=== PATIENT | female | born 1980 | race African-American/Black ===

== ENCOUNTER 2017-12-04 20:39 | Emergency (ER) | payer OTHER ==
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
[2017-12-04 21:03] VITALS: BP 126/87; PULSE 67; TEMP 98.5; BMI 22.1
== END 2017-12-04 22:10 | disposition left against medical advice (07) ==
LOC: JERFT 20:39
DX: R07.81 Pleurodynia (principal); F11.20 Opioid dependence, uncomplicated; W18.09XA Striking against other object with subsequent fall, initial encounter; Y93.89 Activity, other specified; Y92.89 Other specified places as the place of occurrence of the external cause
CPT/HCPCS: 84703; 99281-25

== ENCOUNTER 2018-10-18 09:24 | Inpatient (IN) | payer OTHER ==
[2018-10-18 09:43] VITALS: BMI 19.6
--- NOTE | 2018-10-18 10:39 | HP ---
CIWA Score Nausea/Vomitin Muscle Tremors: 2 Anxiety: 2 Agitation: 2 Paroxysmal Sweats: 1-Minimal Palms Moist Orientation: 0-Oriented Tacttile Disturbances: 1-Very Mild Itch/Numbness Auditory Disturbances: 1-Very Mild Visual Disturbances: 0-None Headache: 2-Mild CIWA-Ar Total Score: 13 - Admission Criteria OASAS Guidelines: Admission for Medically Managed Detox: Requires at least one of the followin. CIWA greater than 12 2. Seizures within the past 24 hours 3. Delirium tremens within the past 24 hours 4. Hallucinations within the past 24 hours 5. Acute intervention needed for co occurring medical disorder 6. Acute intervention needed for co occurring psychiatric disorder 7. Severe withdrawal that cannot be handled at a lower level of care (continued vomiting, continued diarrhea, abnormal vital signs) requiring intravenous medication and/or fluids 8. Patient presents the following: CIWA greater than 12 Admission Criteria Met: Admission criteria met Admission ROS [facility] - HPI Chief Complaint: i need help to stop drinking alcohol Allergies/Adverse Reactions: Allergies Allergy/AdvReac Type Severity Reaction Status Date / Time Pork/Porcine Containing Allergy Severe Vomiting Verified 10/18/18 10:34 Products History of Present Illness: this 37 years old female with alcohol dependence,seeking detox,withdrawal symptom,never been in detox before syncope migraine headache anxiety,depression,personality disorder weight loss no significant period of sobriety Exam Limitations: No Limitations - Ebola screening Have you traveled outside of the country in the last 21 days: No Have you had contact with anyone from an Ebola affected area: No Have you been sick,other than usual withdrawal symptoms: No Do you have a fever: No - Review of Systems Constitutional: Loss of Appetite, Malaise, Night Sweats, Changes in sleep, Weakness, Unintentional Wgt. Loss EENT: reports: Nose Congestion Respiratory: reports: No Symptoms reported Cardiac: reports: No Symptoms Reported GI: reports: Nausea, Poor Appetite, Abdominal cramping : reports: No Symptoms Reported Musculoskeletal: reports: Back Pain, Muscle Pain Integumentary: reports: Dryness Endocrine: reports: No Symptoms Reported Hematology: reports: No Symptoms Reported Psychiatric: reports: No Sypmtoms Reported, Judgement Intact, Mood/Affect Appropiate, Orientated x3, Anxious, Depressed, other (boderlined personality disorder) Patient History - Patient Medical History Hx Anemia: No Hx Asthma: No Hx Chronic Obstructive Pulmonary Disease (COPD): No Hx Cancer: No Hx Cardiac Disorders: No Hx Congestive Heart Failure: No Hx Hypertension: No Hx Hypercholesterolemia: No Hx Pacemaker: No HX Cerebrovascular Accident: No Hx Seizures: No Hx Dementia: No Hx Diabetes: No Hx Gastrointestinal Disorders: No Hx Liver Disease: No Hx Genitourinary Disorders: No Hx Sexually Transmitted Disorders: No Hx Renal Disease (ESRD): No Hx Thyroid Disease: No Hx Human Immunodeficiency Virus (HIV): No (09/28 negative) Hx Hepatitis C: No Hx Depression: Yes (anxiety,personality disorder) Hx Suicide Attempt: No Hx Bipolar Disorder: No Hx Schizophrenia: No Other Medical History: no suicidal,no homicidal,fx of second digit right - Patient Surgical History Past Surgical History: No - PPD History Previous Implant?: Yes Documented Results: Negative w/o proof Implanted On Prior [facility] Admission?: No PPD to be Administered?: Yes - Reproductive History Patient is a Female of Child Bearing Age (11 -55 yrs old): Yes Last Menstrual Period: 09/30/18 Patient : No - Smoking Cessation Smoking history: Current every day smoker Have you smoked in the past 12 months: Yes Aproximately how many cigarettes per day: 20 Hx Chewing Tobacco Use: No Initiated information on smoking cessation: Yes 'Breaking Loose' booklet given: 10/18/18 - Substance & Tx. History Hx Alcohol Use: Yes Substance Use Type: Alcohol Hx Substance Use Treatment: Yes - Substances Abused Alcohol Route: Oral Frequency: Daily Amount used: 3 24 OZ CANS FOUR LOCOS/ 1/2 PINT Age of first use: 11 Date of Last Use: 10/18/18 Family Disease History - Family Disease History Family History: Denies Admission Physical Exam [facility] - Vital Signs Vital Signs: Vital Signs - 24 hr 10/18/18 09:41 Temperature 96.8 F L Pulse Rate 94 H Respiratory 18 Rate Blood Pressure 129/73 - Physical General Appearance: Yes: Moderate Distress, Tremorous, Irritable, Sweating, Anxious HEENTM: Yes: Normal ENT Inspection, JHONNY, Pharynx Normal, Other (poor dental) Respiratory: Yes: Lungs Clear, Normal Breath Sounds, No Respiratory Distress Neck: Yes: Within Normal Limits, Supple, Trachea in good position Breast: Yes: Breast Exam Deferred Cardiology: Yes: Within Normal Limits, Regular Rhythm, Regular Rate, S1, S2 Abdominal: Yes: Within Normal Limits, Normal Bowel Sounds, Non Tender, Flat, Soft Genitourinary: Yes: Within Normal Limits Back: Yes: Muscle Spasm Musculoskeletal: Yes: full range of Motion, Back pain, Muscle Pain Extremities: Yes: Within Normal Limits, Normal Range of Motion, Tremors Neurological: Yes: central office trouble shooter II-XII NML intact, Fully Oriented, Alert, Motor Strength 5/5 Integumentary: Yes: Dry Lymphatic: Yes: Within Normal Limits - Diagnostic (1) Alcohol dependence with uncomplicated withdrawal Current Visit: Yes Status: Acute (2) Syncope Current Visit: Yes Status: Acute (3) Anxiety and depression Current Visit: Yes Status: Acute (4) Personality disorder Current Visit: Yes Status: Acute (5) Nicotine dependence Current Visit: Yes Status: Acute (6) Encounter for monitoring Suboxone maintenance therapy Current Visit: Yes Status: Acute (7) Dehydration Current Visit: Yes Status: Acute (8) Weight loss Current Visit: Yes Status: Acute Cleared for Admission [facility] - Detox or Rehab [facility] Level of Care: Medically Managed Detox Regimen/Protocol: Librium [facility] Breath Alcohol Content Breath Alcohol Content: 0.022 Urine Pregancy Test - Result Urine Test Results: Negative - NO Line Present Urine Drug Screen - Results Drug Screen Negative: No Urine Drug Screen Results: BUP-Suboxone Inpatient Rehab Admission - Rehab Decision to Admit Inpatient rehab admission?: No
[2018-10-18] MEDS ORDERED: ACETAMINOPHEN 325 MG TABLET (FP) PO PRN ×2 (10:50)
[2018-10-18] MEDS ORDERED: MAG HYDROX/AL HYDROX/SIMETH 30 ML UNIT-DOSE CUP PO PRN (10:50)
[2018-10-18] MEDS ORDERED: MENTHOL/PHENOL 1 EACH UD MM PRN (10:50)
[2018-10-18] MEDS ORDERED: MAGNESIUM CITRATE 300 ML BOTTLE PO PRN (10:50)
[2018-10-18] MEDS ORDERED: BISMUTH SUBSALICYLATE 524 MG/30 ML UD PO PRN (10:50)
[2018-10-18] MEDS ORDERED: IBUPROFEN 400 MG TABLET (FP) PO PRN (10:50)
[2018-10-18] MEDS ORDERED: METHOCARBAMOL 500 MG TABLET PO PRN (10:50)
[2018-10-18] MEDS ORDERED: hydrOXYzine PAMOATE 25 MG CAPSULE (FP) PO PRN (10:50)
[2018-10-18] MEDS ORDERED: chlordiazePOXIDE HCL 10 MG CAPSULE PO PRN (10:50)
[2018-10-18] MEDS ORDERED: MAGNESIUM HYDROX 2400MG/30ML ORAL SUSPENSION 30 ML CUP PO PRN (10:50)
[2018-10-18] MEDS ORDERED: MELATONIN 5 MG TABLETS PO PRN (10:50)
[2018-10-18] MEDS: chlordiazePOXIDE HCL 25 MG CAPSULE PO SCH ×2 (12:02→22:18)
[2018-10-18] MEDS: NICOTINE POLACRILEX 4 MG GUM BUC PRN (12:06)
[2018-10-18] MEDS: NICOTINE 21 MG/24 HOURS TOPICAL PATCH TD SCH (12:06)
[2018-10-18] MEDS: NAPROXEN 500 MG TABLET (FP) PO SCH (22:18)
[2018-10-18] MEDS: THIAMINE HCL 100 MG TABLET (FP) PO SCH (22:18)
[2018-10-19] MEDS: chlordiazePOXIDE HCL 25 MG CAPSULE PO SCH (06:32)
[2018-10-19] MEDS ORDERED: BUPRENORPHINE/NALOXONE 8 MG/2 MG FILM PACKET SL SCH (10:00)
[2018-10-19] MEDS ORDERED: PRENATAL VITAMINS W/ FOLIC ACID TABLET (FP) PO SCH (10:00)
[2018-10-19 10:23] LABS: HEMATOCRIT 32.9 % (32.4-45.2); HEMOGLOBIN 10.6 GM/dL (10.7-15.3); MCH 23.4 pg (25.7-33.7); MCHC 32.2 g/dl (32.0-36.0); MEAN CELL VOLUME 72.5 fl (80-96); MEAN PLT VOLUME 8.3 fl (7.5-11.1); PLATELET COUNT 238 K/MM3 (134-434); RBC 4.53 M/mm3 (3.60-5.2); RDW 17.1 % (11.6-15.6); WHITE BLOOD COUNT 12.8 K/mm3 (4.0-10.0)
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
[2018-10-19 10:36] LABS: ALBUMIN 4.3 g/dl (3.4-5.0); ALK PHOS 82 U/L (45-117); ANION GAP 8 MMOL/L (8-16); BILIRUBIN,TOTAL 0.6 mg/dL (0.2-1); BLOOD UREA NITROGEN 15 mg/dL (7-18); CHLORIDE 107 mmol/L (98-107); CO2 23 mmol/L (21-32); CREATININE 0.8 mg/dL (0.55-1.3); GLUCOSE,RANDOM 84 mg/dL (74-106); POTASSIUM 3.7 mmol/L (3.5-5.1); SGOT/AST 20 U/L (15-37); SGPT/ALT 21 U/L (13-61); SODIUM 137 mmol/L (136-145); TOT PROT 7.3 g/dl (6.4-8.2)
[2018-10-19] MEDS: NICOTINE 21 MG/24 HOURS TOPICAL PATCH TD SCH (10:42)
[2018-10-19] MEDS: NAPROXEN 500 MG TABLET (FP) PO SCH ×2 (10:42→21:21)
[2018-10-19] MEDS: NICOTINE POLACRILEX 4 MG GUM BUC PRN ×2 (10:43→17:33)
[2018-10-19] MEDS ORDERED: CITALOPRAM HYDROBROMIDE 10 MG TABLET (FP) PO SCH (10:45)
[2018-10-19] MEDS: busPIRone HCL 10 MG TABLET (FP) PO SCH ×2 (10:47→21:21)
--- NOTE | 2018-10-19 11:52 | PN ---
S CIWA - CIWA Score Nausea/Vomitin-No Nausea/No Vomiting Muscle Tremors: 4-Moderate,w/Arms Extend Anxiety: 4-Mod. Anxious/Guarded Agitation: 4-Moderately Restless Paroxysmal Sweats: 3 Orientation: 0-Oriented Tacttile Disturbances: 0-None Auditory Disturbances: 0-None Visual Disturbances: 0-None Headache: 0-None Present CIWA-Ar Total Score: 15 BHS Progress Note (SOAP) Subjective: anxiety sweats irritable agitation interrupted sleep body aches Objective: 10/19/18 11:51 Vital Signs Temperature 97.9 F 10/19/18 09:14 Pulse Rate 90 10/19/18 09:14 Respiratory Rate 18 10/19/18 09:14 Blood Pressure 109/73 10/19/18 09:14 O2 Sat by Pulse Oximetry (%) Laboratory Tests 10/19/18 10/19/18 06:00 06:00 WBC 12.8 H RBC 4.53 Hgb 10.6 L Hct 32.9 MCV 72.5 L MCH 23.4 L MCHC 32.2 RDW 17.1 H Plt Count 238 MPV 8.3 Sodium 137 Potassium 3.7 Chloride 107 Carbon Dioxide 23 Anion Gap 8 BUN 15 Creatinine 0.8 Creat Clearance w eGFR > 60 Random Glucose 84 Calcium 9.0 Total Bilirubin 0.6 AST 20 ALT 21 Alkaline Phosphatase 82 Total Protein 7.3 Albumin 4.3 aaox3 ambulating no acute distress Assessment: 10/19/18 12:06 withdrawals sx Plan: continue detox increase fluids
[2018-10-19] MEDS: chlordiazePOXIDE 5 MG CAPSULE PO SCH ×2 (13:27→22:26)
[2018-10-19] MEDS: hydrOXYzine PAMOATE 50 MG CAPSULE (FP) PO PRN ×3 (13:28→21:22)
--- NOTE | 2018-10-19 13:37 | EKG ---
Test Reason : Blood Pressure : / mmHG Vent. Rate : 092 BPM Atrial Rate : 092 BPM P-R Int : 150 ms QRS Dur : 084 ms QT Int : 348 ms P-R-T Axes : 070 079 -27 degrees QTc Int : 430 ms NORMAL SINUS RHYTHM T WAVE ABNORMALITY, CONSIDER INFEROLATERAL ISCHEMIA ABNORMAL ECG WHEN COMPARED WITH ECG OF 14-JUL-2018 10:07, T WAVE INVERSION NO LONGER EVIDENT IN ANTERIOR LEADS Confirmed by MD LUIS, VENANCIO ([id number]) on 10/19/2018 1:37:38 PM Referred By: Confirmed By:VENANCIO SMITH MD
[2018-10-19] MEDS: THIAMINE HCL 100 MG TABLET (FP) PO SCH (21:22)
[2018-10-19] MEDS ORDERED: MIRTAZAPINE 30 MG TABLET (FP) PO SCH (22:00)
[2018-10-20] MEDS: chlordiazePOXIDE 5 MG CAPSULE PO SCH (07:09)
[2018-10-20 07:27] VITALS: BP 85/40; PULSE 69; TEMP 97.7
--- NOTE | 2018-10-20 09:30 | PN ---
[facility] Progress Note Note: pt states she wanted to leave because she gets more help that she is looking for on the outside. technical publications writer,RN and counselor tried to engage with patient to assist with her needs but she insisted that she needs to leave. Pt was told that she did not complete her detox but continued to insist on leaving. Pt signed out AMA.
--- NOTE | 2018-10-20 09:53 | DS ---
[facility] Detox Discharge Summary Admission Date: 10/18/18 - History Present History: Alcohol Dependence - Physical Exam Results Vital Signs: Vital Signs Temperature 97.7 F 10/20/18 07:25 Pulse Rate 69 10/20/18 07:25 Respiratory Rate 16 10/20/18 07:25 Blood Pressure 85/40 L 10/20/18 07:25 O2 Sat by Pulse Oximetry (%) - Treatment Hospital Course: Discharged Condition Good - Medication Discharge Medications: Ambulatory Orders Citalopram Hydrobromide [Celexa -] 10 mg PO DAILY #30 tablet 06/16/18 Buprenorphine/Naloxone [Suboxone 8Mg/2Mg Sl Film -] 2 each SL DAILY 10/18/18 Mirtazapine [Remeron -] 30 mg PO HS 10/18/18 Naproxen [Naprosyn -] 500 mg PO BID 10/18/18 hydrOXYzine PAMOATE [Vistaril -] 50 mg PO BID 10/18/18 - Diagnosis (1) Alcohol dependence with uncomplicated withdrawal Current Visit: Yes Status: Chronic (2) Alcohol-induced mood disorder Current Visit: Yes Status: Acute (3) Alcohol-induced sleep disorder Current Visit: Yes Status: Acute (4) Anxiety and depression Current Visit: Yes Status: Acute (5) Dehydration Current Visit: Yes Status: Chronic (6) Encounter for monitoring Suboxone maintenance therapy Current Visit: Yes Status: Chronic (7) Personality disorder Current Visit: Yes Status: Acute (8) Syncope Current Visit: Yes Status: Acute (9) Weight loss Current Visit: Yes Status: Acute (10) MDD (major depressive disorder) Current Visit: Yes Status: Chronic (11) Migraine headache Current Visit: Yes Status: Chronic Qualifiers: Migraine type: without aura Intractability: not intractable (12) Nicotine dependence Current Visit: Yes Status: Chronic Qualifiers: Nicotine product type: cigarettes Substance use status: uncomplicated Qualified Code(s): F17.210 - Nicotine dependence, cigarettes, uncomplicated - AMA Did Patient Leave Against Medical Advice: Yes (going home.declined referral)
[2018-10-20] MEDS ORDERED: chlordiazePOXIDE HCL 10 MG CAPSULE PO PRN (13:00)
[2018-10-20] MEDS ORDERED: chlordiazePOXIDE HCL 10 MG CAPSULE PO SCH (13:00)
== END 2018-10-20 09:36 | disposition left against medical advice (07) | DRG 770 ==
LOC: YASAS 09:24 → Y6N 11:08
PROVIDERS: ADMIT Surgery; ATTEND Surgery
PROC: HZ2ZZZZ Detoxification Services for Substance Abuse Treatment (ICD-10-PCS; principal; 2018-10-18)
DX: F10.230 Alcohol dependence with withdrawal, uncomplicated (principal); F10.24 Alcohol dependence with alcohol-induced mood disorder; F10.282 Alcohol dependence with alcohol-induced sleep disorder; F11.20 Opioid dependence, uncomplicated; F17.210 Nicotine dependence, cigarettes, uncomplicated; F41.9 Anxiety disorder, unspecified; F32.9 Major depressive disorder, single episode, unspecified; F60.9 Personality disorder, unspecified; E86.0 Dehydration; R63.4 Abnormal weight loss; Z68.1 Body mass index [BMI] 19.9 or less, adult; Z59.0 Homelessness
CPT/HCPCS: 36415; 80053; 85027; 86593; 93005; 93010

== ENCOUNTER 2018-11-04 09:46 | Inpatient (IN) | payer OTHER ==
[2018-11-04 10:19] VITALS: BMI 19.8
--- NOTE | 2018-11-04 12:18 | HP ---
"CIWA Score Nausea/Vomitin-No Nausea/No Vomiting Muscle Tremors: None Anxiety: 4-Mod. Anxious/Guarded Agitation: 4-Moderately Restless Paroxysmal Sweats: 2 Orientation: 2-Disoriented Date<2 days Tacttile Disturbances: 0-None Auditory Disturbances: 0-None Visual Disturbances: 2-Mild Sensitivity Headache: 4-Moderately Severe CIWA-Ar Total Score: 18 - Admission Criteria OASAS Guidelines: Admission for Medically Managed Detox: Requires at least one of the followin. CIWA greater than 12 2. Seizures within the past 24 hours 3. Delirium tremens within the past 24 hours 4. Hallucinations within the past 24 hours 5. Acute intervention needed for co occurring medical disorder 6. Acute intervention needed for co occurring psychiatric disorder 7. Severe withdrawal that cannot be handled at a lower level of care (continued vomiting, continued diarrhea, abnormal vital signs) requiring intravenous medication and/or fluids 8. Admission ROS [facility] Allergies/Adverse Reactions: Allergies Allergy/AdvReac Type Severity Reaction Status Date / Time Pork/Porcine Containing Allergy Severe Vomiting Verified 11/04/18 13:34 Products History of Present Illness: pt here requesting detox from etoh use , reports 3-4 cans x 24 oz zaira and 1/2 pint vodka/day , reports use since age 12 , progressively increased since age 15 , latest use this morning 1 can of beer , current Dev 0.000 , yesterday 3 nips , day before yesterday 3-4 zaira x 24 oz , latest vodka use 3 days ago , denies seizures , + blackouts , occasional tremors , stars drinking in the mornings , denies driving , denies sobriety . denies illicits utox + briana , bzo, bup tobacco : 1 ppd PMHX : migraine martinez , anemia PShx : denies Psych: anxiety , depression , denies SI / HI Lmp 2018 upt neg . no children Shx : homeless , unemployed Search Terms: mercedes zapata, 1980 Search Date: 11/04/2018 12:09:01 PM The Drug Utilization Report below displays all of the controlled substance prescriptions, if any, that your patient has filled in the last twelve months. The information displayed on this report is compiled from pharmacy submissions to the Department, and accurately reflects the information as submitted by the pharmacies. This report was requested by: Pat Rousseau | Reference #: [id number] Others' Prescriptions Patient Name: Mercedes Zapata Date: 1980 Address: [place] [address] Sex: Female Rx Written Rx Dispensed Drug Quantity Days Supply Prescriber Name 10/25/2018 10/26/2018 buprenorphine-naloxone 8-2 mg sl film 60 30 Cecilio Angel) Patient Name: Mercedes Zapata Date: 1980 Address: [address] [place] [address] Sex: Female Rx Written Rx Dispensed Drug Quantity Days Supply Prescriber Name 10/14/2018 10/15/2018 suboxone 8 mg-2 mg sl film 28 14 Thiago Huynh MD Patient Name: Mercedes Zapata Date: 1980 Address: [place] [address] Sex: Female Rx Written Rx Dispensed Drug Quantity Days Supply Prescriber Name 09/02/2018 09/02/2018 suboxone 8 mg-2 mg sl film 60 30 Maco Nash Patient Name: Mercedes Zapata Date: 1980 Address: [address] [place] [address] Sex: Female Rx Written Rx Dispensed Drug Quantity Days Supply Prescriber Name 08/20/2018 08/24/2018 suboxone 8 mg-2 mg sl film 20 10 [facility] * - Drugs marked with an asterisk are compound drugs. If the compound drug is made up of more than one controlled substance, then each controlled substance will be a separate row in the table. Exam Limitations: Clinical Condition - Ebola screening Have you traveled outside of the country in the last 21 days: No Have you had contact with anyone from an Ebola affected area: No Have you been sick,other than usual withdrawal symptoms: No Do you have a fever: No - Review of Systems Constitutional: See HPI EENT: reports: See HPI, Other (glasses) Respiratory: reports: No Symptoms reported Cardiac: reports: No Symptoms Reported GI: reports: Diarrhea : reports: No Symptoms Reported Musculoskeletal: reports: No Symptoms Reported Integumentary: reports: No Symptoms Reported Neuro: reports: Headache Endocrine: reports: No Symptoms Reported Psychiatric: reports: Orientated x3, Agitated, Anxious Patient History - Patient Medical History Hx Anemia: No Hx Asthma: No Hx Chronic Obstructive Pulmonary Disease (COPD): No Hx Cancer: No Hx Cardiac Disorders: No Hx Congestive Heart Failure: No Hx Hypertension: No Hx Hypercholesterolemia: No Hx Pacemaker: No HX Cerebrovascular Accident: No Hx Seizures: No Hx Dementia: No Hx Diabetes: No Hx Gastrointestinal Disorders: No Hx Liver Disease: No Hx Genitourinary Disorders: No Hx Sexually Transmitted Disorders: No Hx Renal Disease (ESRD): No Hx Thyroid Disease: No Hx Human Immunodeficiency Virus (HIV): No (09/28 negative) Hx Hepatitis C: No Hx Depression: Yes (anxiety,personality disorder) Hx Suicide Attempt: No Hx Bipolar Disorder: No Hx Schizophrenia: No - Patient Surgical History Past Surgical History: No - PPD History Date: 10/20/18 - Reproductive History Last Menstrual Period: 09/30/18 - Smoking Cessation Smoking history: Current every day smoker Have you smoked in the past 12 months: Yes Aproximately how many cigarettes per day: 20 Hx Chewing Tobacco Use: No Initiated information on smoking cessation: No - Substances Abused Alcohol Route: Oral Frequency: Daily Amount used: 3 24 OZ CANES FOUR LOCO/ 1 PINT OF VODKA Age of first use: 12 Date of Last Use: 11/04/18 Cocaine Route: Inhalation Frequency: 3-6 times per week Amount used: $20-40 Age of first use: 18 Date of Last Use: 11/01/18 Admission Physical Exam S - Vital Signs Vital Signs: Vital Signs - 24 hr 11/04/18 10:18 Temperature 98.6 F Pulse Rate 79 Respiratory 18 Rate Blood Pressure 125/81 - Physical General Appearance: Yes: Moderate Distress, Thin, Anxious HEENTM: Yes: EOMI, Hearing grossly Normal, Normocephalic, Normal Voice, Other ( poor dentition , many missing teeth) Respiratory: Yes: Chest Non-Tender, Lungs Clear, Normal Breath Sounds Neck: Yes: No masses,lesions,Nodules, Trachea in good position Cardiology: Yes: Regular Rhythm, Regular Rate, S1, S2 Abdominal: Yes: Non Tender, Soft Back: Yes: Normal Inspection Musculoskeletal: Yes: Gait Steady Extremities: Yes: Non-Tender, Tremors Neurological: Yes: Motor Strength 5/5 Integumentary: Yes: Normal Color, Warm - Diagnostic (1) Alcohol dependence with uncomplicated withdrawal Current Visit: Yes Status: Acute (2) Nicotine dependence Current Visit: Yes Status: Chronic Qualifiers: Nicotine product type: cigarettes Substance use status: uncomplicated Qualified Code(s): F17.210 - Nicotine dependence, cigarettes, uncomplicated [facility] Breath Alcohol Content Breath Alcohol Content: 0 Urine Pregancy Test - Result Urine Test Results: Negative - NO line present Urine Drug Screen - Results Drug Screen Negative: No Urine Drug Screen Results: BRIANA-Cocaine, BZO-Benzodiazepines, BUP-Suboxone Inpatient Rehab Admission - Rehab Decision to Admit Inpatient rehab admission?: No"
[2018-11-04] MEDS ORDERED: MAGNESIUM HYDROX 2400MG/30ML ORAL SUSPENSION 30 ML CUP PO PRN (12:32)
[2018-11-04] MEDS ORDERED: MENTHOL/PHENOL 1 EACH UD MM PRN (12:32)
[2018-11-04] MEDS ORDERED: chlordiazePOXIDE HCL 25 MG CAPSULE PO PRN (12:32)
[2018-11-04] MEDS ORDERED: ACETAMINOPHEN 325 MG TABLET (FP) PO PRN (12:32)
[2018-11-04] MEDS ORDERED: MAGNESIUM CITRATE 300 ML BOTTLE PO PRN (12:32)
[2018-11-04] MEDS ORDERED: BISMUTH SUBSALICYLATE 262 MG/15 ML BTL PO PRN (12:32)
[2018-11-04] MEDS ORDERED: MAG HYDROX/AL HYDROX/SIMETH 30 ML UNIT-DOSE CUP PO PRN (12:32)
[2018-11-04] MEDS: chlordiazePOXIDE HCL 25 MG CAPSULE PO SCH ×2 (17:47→22:18)
[2018-11-04] MEDS: hydrOXYzine PAMOATE 50 MG CAPSULE (FP) PO SCH (22:18)
[2018-11-04] MEDS: MIRTAZAPINE 30 MG TABLET (FP) PO SCH (22:18)
[2018-11-04] MEDS: THIAMINE HCL 100 MG TABLET (FP) PO SCH (22:18)
[2018-11-04] MEDS: ACETAMINOPHEN 325 MG TABLET (FP) PO PRN (22:20)
[2018-11-05] MEDS: chlordiazePOXIDE HCL 25 MG CAPSULE PO SCH ×4 (05:35→22:19)
[2018-11-05] MEDS: PRENATAL VITAMINS W/ FOLIC ACID TABLET (FP) PO SCH (10:06)
[2018-11-05] MEDS: BUPRENORPHINE/NALOXONE 8 MG/2 MG FILM PACKET SL SCH (10:07)
[2018-11-05] MEDS: hydrOXYzine PAMOATE 50 MG CAPSULE (FP) PO SCH (10:08)
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
[2018-11-05 10:29] LABS: ALBUMIN 4.1 g/dl (3.4-5.0); ALK PHOS 82 U/L (45-117); ANION GAP 8 MMOL/L (8-16); BILIRUBIN,TOTAL 0.4 mg/dL (0.2-1); BLOOD UREA NITROGEN 12 mg/dL (7-18); CALCIUM 8.9 mg/dL (8.5-10.1); CHLORIDE 104 mmol/L (98-107); CO2 28 mmol/L (21-32); CREATININE 0.8 mg/dL (0.55-1.3); GLUCOSE,RANDOM 135 mg/dL (74-106); POTASSIUM 4.5 mmol/L (3.5-5.1); SGOT/AST 20 U/L (15-37); SGPT/ALT 17 U/L (13-61); SODIUM 140 mmol/L (136-145); TOT PROT 7.2 g/dl (6.4-8.2)
[2018-11-05 10:32] LABS: HEMATOCRIT 35.2 % (32.4-45.2); HEMOGLOBIN 10.6 GM/dL (10.7-15.3); MCH 22.5 pg (25.7-33.7); MCHC 30.2 g/dl (32.0-36.0); MEAN CELL VOLUME 74.6 fl (80-96); MEAN PLT VOLUME 8.3 fl (7.5-11.1); PLATELET COUNT 296 K/MM3 (134-434); RBC 4.72 M/mm3 (3.60-5.2); RDW 16.7 % (11.6-15.6); WHITE BLOOD COUNT 10.2 K/mm3 (4.0-10.0)
[2018-11-05] MEDS: CITALOPRAM HYDROBROMIDE 10 MG TABLET (FP) PO SCH (11:16)
[2018-11-05] MEDS: NICOTINE 21 MG/24 HOURS TOPICAL PATCH TD SCH (11:17)
[2018-11-05] MEDS: hydrOXYzine PAMOATE 50 MG CAPSULE (FP) PO PRN (17:39)
[2018-11-05] MEDS: IBUPROFEN 400 MG TABLET (FP) PO PRN (17:39)
[2018-11-05] MEDS: NICOTINE POLACRILEX 2 MG GUM BUC PRN (17:44)
--- NOTE | 2018-11-05 17:52 | PN ---
[facility] CIWA - CIWA Score Nausea/Vomitin-No Nausea/No Vomiting Muscle Tremors: None Anxiety: 4-Mod. Anxious/Guarded Agitation: 1-Slight > Activity Paroxysmal Sweats: 3 Orientation: 0-Oriented Tacttile Disturbances: 2-Mild Itch/Numbness/Burn Auditory Disturbances: 0-None Visual Disturbances: 2-Mild Sensitivity Headache: 3-Moderate CIWA-Ar Total Score: 15 S Progress Note (SOAP) Subjective: Sweating, H/A, Anxious. Objective: PATIENT A & O X 3, OBSERVED AMBULATING ON UNIT. IN NO ACUTE DISTRESS. PATIENT AFEBRILE. 11/05/18 17:49 Vital Signs Temperature 97.3 F L 11/05/18 09:38 Pulse Rate 62 11/05/18 09:38 Respiratory Rate 18 11/05/18 09:38 Blood Pressure 108/67 11/05/18 09:38 O2 Sat by Pulse Oximetry (%) Laboratory Tests 11/05/18 11/05/18 11/05/18 06:00 06:00 06:00 WBC 10.2 H RBC 4.72 Hgb 10.6 L Hct 35.2 MCV 74.6 L MCH 22.5 L MCHC 30.2 L RDW 16.7 H Plt Count 296 D MPV 8.3 Sodium 140 Potassium 4.5 Chloride 104 Carbon Dioxide 28 Anion Gap 8 BUN 12 Creatinine 0.8 Creat Clearance w eGFR 80.27 Random Glucose 135 H Calcium 8.9 Total Bilirubin 0.4 AST 20 ALT 17 Alkaline Phosphatase 82 Total Protein 7.2 Albumin 4.1 RPR Titer Nonreactive LABS NOTED. 11/05/18 17:51 Assessment: 11/05/18 17:50 WITHDRAWAL SYMPTOMS. ANEMIA. HYPERGLYCEMIA. Plan: CONTINUE DETOX. INCREASE DAILY PO FLUID INTAKE. BGM ACBK FOR ELEVATED ADMISSION RANDOM GLUCOSE LEVEL. PATIENT IS CURRENTLY RECEIVING DAILY MVI CONTAINING B VITAMINS AND IRON WHILE ADMITTED FOR DETOX.
[2018-11-05] MEDS: busPIRone HCL 10 MG TABLET (FP) PO SCH (22:19)
[2018-11-05] MEDS: MIRTAZAPINE 30 MG TABLET (FP) PO SCH (22:19)
[2018-11-05] MEDS: THIAMINE HCL 100 MG TABLET (FP) PO SCH (22:19)
[2018-11-06] MEDS: chlordiazePOXIDE HCL 25 MG CAPSULE PO SCH ×2 (06:28→10:30)
[2018-11-06] MEDS: ACETAMINOPHEN 325 MG TABLET (FP) PO PRN ×3 (09:06→22:35)
[2018-11-06] MEDS: PRENATAL VITAMINS W/ FOLIC ACID TABLET (FP) PO SCH (10:29)
[2018-11-06] MEDS: CITALOPRAM HYDROBROMIDE 10 MG TABLET (FP) PO SCH (10:29)
[2018-11-06] MEDS: IBUPROFEN 400 MG TABLET (FP) PO PRN ×2 (10:29→17:51)
[2018-11-06] MEDS: busPIRone HCL 10 MG TABLET (FP) PO SCH ×2 (10:30→22:32)
[2018-11-06] MEDS: NICOTINE 21 MG/24 HOURS TOPICAL PATCH TD SCH (10:30)
[2018-11-06] MEDS: BUPRENORPHINE/NALOXONE 8 MG/2 MG FILM PACKET SL SCH (10:30)
[2018-11-06] MEDS: NICOTINE POLACRILEX 2 MG GUM BUC PRN ×2 (10:31→17:52)
--- NOTE | 2018-11-06 10:52 | PN ---
[facility] CIWA - CIWA Score Nausea/Vomitin-Mild Nausea/No Vomiting Muscle Tremors: 2 Anxiety: 3 Agitation: 3 Paroxysmal Sweats: 2 Orientation: 0-Oriented Tacttile Disturbances: 0-None Auditory Disturbances: 0-None Visual Disturbances: 0-None Headache: 0-None Present CIWA-Ar Total Score: 11 [facility] COWS - Scale Anxiety or Irritability: 2=Irritable/Anxious [facility] Progress Note (SOAP) Subjective: toothache requesting discharge prescriptions for naproxen and suboxone to take to [facility] upon d/c Objective: 11/06/18 10:45 A & O x 3 Cavity noted to lower molars, gum slightly swollen Vital Signs Temperature 97.8 F 11/06/18 10:35 Pulse Rate 66 11/06/18 10:35 Respiratory Rate 18 11/06/18 10:35 Blood Pressure 112/76 11/06/18 10:35 O2 Sat by Pulse Oximetry (%) Laboratory Last Values WBC 10.2 K/mm3 (4.0-10.0) H 11/05/18 06:00 RBC 4.72 M/mm3 (3.60-5.2) 11/05/18 06:00 Hgb 10.6 GM/dL (10.7-15.3) L 11/05/18 06:00 Hct 35.2 % (32.4-45.2) 11/05/18 06:00 MCV 74.6 fl (80-96) L 11/05/18 06:00 MCH 22.5 pg (25.7-33.7) L 11/05/18 06:00 MCHC 30.2 g/dl (32.0-36.0) L 11/05/18 06:00 RDW 16.7 % (11.6-15.6) H 11/05/18 06:00 Plt Count 296 K/MM3 (134-434) D 11/05/18 06:00 MPV 8.3 fl (7.5-11.1) 11/05/18 06:00 Sodium 140 mmol/L (136-145) 11/05/18 06:00 Potassium 4.5 mmol/L (3.5-5.1) 11/05/18 06:00 Chloride 104 mmol/L (98-107) 11/05/18 06:00 Carbon Dioxide 28 mmol/L (21-32) 11/05/18 06:00 Anion Gap 8 MMOL/L (8-16) 11/05/18 06:00 BUN 12 mg/dL (7-18) 11/05/18 06:00 Creatinine 0.8 mg/dL (0.55-1.3) 11/05/18 06:00 Creat Clearance w eGFR 80.27 (>60) 11/05/18 06:00 Random Glucose 135 mg/dL (74-106) H 11/05/18 06:00 Calcium 8.9 mg/dL (8.5-10.1) 11/05/18 06:00 Total Bilirubin 0.4 mg/dL (0.2-1) 11/05/18 06:00 AST 20 U/L (15-37) 11/05/18 06:00 ALT 17 U/L (13-61) 11/05/18 06:00 Alkaline Phosphatase 82 U/L (45-117) 11/05/18 06:00 Total Protein 7.2 g/dl (6.4-8.2) 11/05/18 06:00 Albumin 4.1 g/dl (3.4-5.0) 11/05/18 06:00 RPR Titer Nonreactive (NONREACTIVE) 11/05/18 06:00 WBC elevated, probably due to pt's tooth cavity low HGb, on multivitamin supplements Assessment: 11/06/18 15:23 Withdrawal sx Tooth decay Plan: Continue detox Amoxicillin QID for tooth de4cay Encourage increased hydration NAproxen sent to pharmacy, explained to pt that 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
[2018-11-06] MEDS: hydrOXYzine PAMOATE 50 MG CAPSULE (FP) PO PRN ×2 (12:59→17:49)
[2018-11-06] MEDS ORDERED: chlordiazePOXIDE HCL 10 MG CAPSULE PO PRN (17:00)
[2018-11-06] MEDS: chlordiazePOXIDE HCL 10 MG CAPSULE PO SCH ×2 (17:48→22:32)
[2018-11-06] MEDS: THIAMINE HCL 100 MG TABLET (FP) PO SCH (22:31)
[2018-11-06] MEDS: MIRTAZAPINE 30 MG TABLET (FP) PO SCH (22:32)
[2018-11-06] MEDS: MELATONIN 5 MG TABLETS PO PRN (22:33)
[2018-11-07] MEDS: chlordiazePOXIDE HCL 10 MG CAPSULE PO SCH ×3 (06:03→17:12)
--- NOTE | 2018-11-07 09:31 | DS ---
[facility] Detox Discharge Summary Admission Date: 11/04/18 Discharge Date: 11/07/18 - History Present History: Alcohol Dependence Additional Comments: 38 years old female admitted on 11/04/18 for alcohol withdrawal stabilization in suboxon program 8-2 mg sl bid last 30 days filled 10/26/18 patient reporting that her aftercare at [facility] will be filler picker tomorrow as per counselor encourage the pateint return to suboxon maintenance program for medical and mental issues - Physical Exam Results Vital Signs: Vital Signs Temperature 98.2 F 11/07/18 06:32 Pulse Rate 60 11/07/18 06:32 Respiratory Rate 16 11/07/18 06:32 Blood Pressure 91/59 L 11/07/18 06:32 O2 Sat by Pulse Oximetry (%) Pertinent Admission Physical Exam Findings: alcohol withdrawal sx Laboratory Last Values WBC 10.2 K/mm3 (4.0-10.0) H 11/05/18 06:00 RBC 4.72 M/mm3 (3.60-5.2) 11/05/18 06:00 Hgb 10.6 GM/dL (10.7-15.3) L 11/05/18 06:00 Hct 35.2 % (32.4-45.2) 11/05/18 06:00 MCV 74.6 fl (80-96) L 11/05/18 06:00 MCH 22.5 pg (25.7-33.7) L 11/05/18 06:00 MCHC 30.2 g/dl (32.0-36.0) L 11/05/18 06:00 RDW 16.7 % (11.6-15.6) H 11/05/18 06:00 Plt Count 296 K/MM3 (134-434) D 11/05/18 06:00 MPV 8.3 fl (7.5-11.1) 11/05/18 06:00 Sodium 140 mmol/L (136-145) 11/05/18 06:00 Potassium 4.5 mmol/L (3.5-5.1) 11/05/18 06:00 Chloride 104 mmol/L (98-107) 11/05/18 06:00 Carbon Dioxide 28 mmol/L (21-32) 11/05/18 06:00 Anion Gap 8 MMOL/L (8-16) 11/05/18 06:00 BUN 12 mg/dL (7-18) 11/05/18 06:00 Creatinine 0.8 mg/dL (0.55-1.3) 11/05/18 06:00 Creat Clearance w eGFR 80.27 (>60) 11/05/18 06:00 Random Glucose 135 mg/dL (74-106) H 11/05/18 06:00 Calcium 8.9 mg/dL (8.5-10.1) 11/05/18 06:00 Total Bilirubin 0.4 mg/dL (0.2-1) 11/05/18 06:00 AST 20 U/L (15-37) 11/05/18 06:00 ALT 17 U/L (13-61) 11/05/18 06:00 Alkaline Phosphatase 82 U/L (45-117) 11/05/18 06:00 Total Protein 7.2 g/dl (6.4-8.2) 11/05/18 06:00 Albumin 4.1 g/dl (3.4-5.0) 11/05/18 06:00 RPR Titer Nonreactive (NONREACTIVE) 11/05/18 06:00 lab noted - Treatment Hospital Course: Detox Protocol Followed, Detoxed Safely, Responded well, Discharged Condition Good, Rehab Referral Accepted Patient has Accepted a Rehab Referral to: [facility] - Medication Discharge Medications: Ambulatory Orders Citalopram Hydrobromide [Celexa -] 10 mg PO DAILY #30 tablet 06/16/18 Buprenorphine/Naloxone [Suboxone 8Mg/2Mg Sl Film -] 2 each SL DAILY 10/18/18 Mirtazapine [Remeron -] 30 mg PO HS 10/18/18 Naproxen [Naprosyn -] 500 mg PO BID 10/18/18 hydrOXYzine PAMOATE [Vistaril -] 50 mg PO BID 10/18/18 Buspirone HCl [Buspar -] 10 mg PO BID 11/05/18 - Diagnosis (1) Alcohol dependence with uncomplicated withdrawal Current Visit: Yes Status: Acute (2) Encounter for monitoring Suboxone maintenance therapy Current Visit: Yes Status: Chronic (3) Nicotine dependence Current Visit: Yes Status: Acute Qualifiers: Nicotine product type: cigarettes Substance use status: in withdrawal Qualified Code(s): F17.213 - Nicotine dependence, cigarettes, with withdrawal (4) Weight loss Current Visit: Yes Status: Acute - AMA Did Patient Leave Against Medical Advice: No
[2018-11-07] MEDS: busPIRone HCL 10 MG TABLET (FP) PO SCH ×2 (10:26→22:07)
[2018-11-07] MEDS: NICOTINE 21 MG/24 HOURS TOPICAL PATCH TD SCH (10:26)
[2018-11-07] MEDS: BUPRENORPHINE/NALOXONE 8 MG/2 MG FILM PACKET SL SCH (10:26)
[2018-11-07] MEDS: CITALOPRAM HYDROBROMIDE 10 MG TABLET (FP) PO SCH (10:26)
[2018-11-07] MEDS: PRENATAL VITAMINS W/ FOLIC ACID TABLET (FP) PO SCH (10:26)
[2018-11-07] MEDS: ACETAMINOPHEN 325 MG TABLET (FP) PO PRN ×2 (10:27→17:14)
[2018-11-07] MEDS: hydrOXYzine PAMOATE 50 MG CAPSULE (FP) PO PRN ×2 (10:28→17:14)
[2018-11-07] MEDS: NICOTINE POLACRILEX 2 MG GUM BUC PRN (10:28)
--- NOTE | 2018-11-07 14:18 | PN ---
[facility] CIWA - CIWA Score Nausea/Vomitin-No Nausea/No Vomiting Muscle Tremors: 1-None Visible, but [place] Anxiety: 1-Mildly Anxious Agitation: 1-Slight > Activity Paroxysmal Sweats: No Perspiration Orientation: 0-Oriented Tacttile Disturbances: 1-Very Mild Itch/Numbness Auditory Disturbances: 1-Very Mild Visual Disturbances: 0-None Headache: 1-Very Mild CIWA-Ar Total Score: 6 [facility] Progress Note (SOAP) Subjective: feeling better today patient does not want to leave the detox unit due to counselor arranged transportation for her on 11/08/18 to [facility] patient does not want to leave the detox unit today Objective: 11/07/18 14:21 Vital Signs Temperature 98.8 F 11/07/18 09:37 Pulse Rate 66 11/07/18 09:37 Respiratory Rate 18 11/07/18 09:37 Blood Pressure 109/71 11/07/18 09:37 O2 Sat by Pulse Oximetry (%) Laboratory Last Values WBC 10.2 K/mm3 (4.0-10.0) H 11/05/18 06:00 RBC 4.72 M/mm3 (3.60-5.2) 11/05/18 06:00 Hgb 10.6 GM/dL (10.7-15.3) L 11/05/18 06:00 Hct 35.2 % (32.4-45.2) 11/05/18 06:00 MCV 74.6 fl (80-96) L 11/05/18 06:00 MCH 22.5 pg (25.7-33.7) L 11/05/18 06:00 MCHC 30.2 g/dl (32.0-36.0) L 11/05/18 06:00 RDW 16.7 % (11.6-15.6) H 11/05/18 06:00 Plt Count 296 K/MM3 (134-434) D 11/05/18 06:00 MPV 8.3 fl (7.5-11.1) 11/05/18 06:00 Sodium 140 mmol/L (136-145) 11/05/18 06:00 Potassium 4.5 mmol/L (3.5-5.1) 11/05/18 06:00 Chloride 104 mmol/L (98-107) 11/05/18 06:00 Carbon Dioxide 28 mmol/L (21-32) 11/05/18 06:00 Anion Gap 8 MMOL/L (8-16) 11/05/18 06:00 BUN 12 mg/dL (7-18) 11/05/18 06:00 Creatinine 0.8 mg/dL (0.55-1.3) 11/05/18 06:00 Creat Clearance w eGFR 80.27 (>60) 11/05/18 06:00 Random Glucose 135 mg/dL (74-106) H 11/05/18 06:00 Calcium 8.9 mg/dL (8.5-10.1) 11/05/18 06:00 Total Bilirubin 0.4 mg/dL (0.2-1) 11/05/18 06:00 AST 20 U/L (15-37) 11/05/18 06:00 ALT 17 U/L (13-61) 11/05/18 06:00 Alkaline Phosphatase 82 U/L (45-117) 11/05/18 06:00 Total Protein 7.2 g/dl (6.4-8.2) 11/05/18 06:00 Albumin 4.1 g/dl (3.4-5.0) 11/05/18 06:00 RPR Titer Nonreactive (NONREACTIVE) 11/05/18 06:00 lab noted Assessment: 11/07/18 14:21 mild withdrawal sx Plan: continue detox
[2018-11-07] MEDS: MIRTAZAPINE 30 MG TABLET (FP) PO SCH (22:07)
[2018-11-07] MEDS: MELATONIN 5 MG TABLETS PO PRN (22:07)
[2018-11-07] MEDS: THIAMINE HCL 100 MG TABLET (FP) PO SCH (22:07)
[2018-11-07] MEDS: IBUPROFEN 400 MG TABLET (FP) PO PRN (22:10)
[2018-11-08] MEDS: chlordiazePOXIDE HCL 10 MG CAPSULE PO SCH (06:08)
[2018-11-08 09:15] VITALS: BP 105/69; PULSE 70; TEMP 98.2
[2018-11-08] MEDS: busPIRone HCL 10 MG TABLET (FP) PO SCH (10:13)
[2018-11-08] MEDS: NICOTINE 21 MG/24 HOURS TOPICAL PATCH TD SCH (10:13)
[2018-11-08] MEDS: PRENATAL VITAMINS W/ FOLIC ACID TABLET (FP) PO SCH (10:13)
[2018-11-08] MEDS: CITALOPRAM HYDROBROMIDE 10 MG TABLET (FP) PO SCH (10:13)
[2018-11-08] MEDS: NICOTINE POLACRILEX 2 MG GUM BUC PRN (10:14)
[2018-11-08] MEDS: BUPRENORPHINE/NALOXONE 8 MG/2 MG FILM PACKET SL SCH (10:14)
[2018-11-08] MEDS: hydrOXYzine PAMOATE 50 MG CAPSULE (FP) PO PRN (10:15)
[2018-11-08] MEDS: ACETAMINOPHEN 325 MG TABLET (FP) PO PRN (10:25)
--- NOTE | 2018-11-08 13:31 | DS ---
[facility] Detox Discharge Summary Admission Date: 11/04/18 Discharge Date: 11/08/18 - History Present History: Alcohol Dependence, Opioid Dependence Additional Comments: PATIENT GOING TO [facility] [place] FOR AFTERCARE. PATIENT WAS DISCHARGED FROM DETOX UNIT TO BE TAKEN OVER TO REHAB UNIT IN STABLE MEDICAL CONDITION. Pertinent Past History: Depression, Anxiety, History of Personality Disorder, Nicotine Dependence, Suboxone Maintenance Therapy. - Physical Exam Results Vital Signs: Vital Signs Temperature 98.2 F 11/08/18 09:14 Pulse Rate 70 11/08/18 09:14 Respiratory Rate 18 11/08/18 09:14 Blood Pressure 105/69 11/08/18 09:14 O2 Sat by Pulse Oximetry (%) Pertinent Admission Physical Exam Findings: WITHDRAWAL SYMPTOMS. Laboratory Tests 11/05/18 11/05/18 11/05/18 06:00 06:00 06:00 WBC 10.2 H RBC 4.72 Hgb 10.6 L Hct 35.2 MCV 74.6 L MCH 22.5 L MCHC 30.2 L RDW 16.7 H Plt Count 296 D MPV 8.3 Sodium 140 Potassium 4.5 Chloride 104 Carbon Dioxide 28 Anion Gap 8 BUN 12 Creatinine 0.8 Creat Clearance w eGFR 80.27 Random Glucose 135 H Calcium 8.9 Total Bilirubin 0.4 AST 20 ALT 17 Alkaline Phosphatase 82 Total Protein 7.2 Albumin 4.1 RPR Titer Nonreactive LABS NOTED. - Treatment Hospital Course: Detox Protocol Followed, Detoxed Safely, Responded well, Discharged Condition Good, Rehab Referral Accepted Patient has Accepted a Rehab Referral to: [facility] ([place] [place] - Medication Discharge Medications: Ambulatory Orders Citalopram Hydrobromide [Celexa -] 10 mg PO DAILY #30 tablet 06/16/18 Buprenorphine/Naloxone [Suboxone 8Mg/2Mg Sl Film -] 2 each SL DAILY 10/18/18 Mirtazapine [Remeron -] 30 mg PO HS 10/18/18 Naproxen [Naprosyn -] 500 mg PO BID 10/18/18 hydrOXYzine PAMOATE [Vistaril -] 50 mg PO BID 10/18/18 Buspirone HCl [Buspar -] 10 mg PO BID 11/05/18 - Diagnosis (1) Alcohol dependence with uncomplicated withdrawal Status: Acute (2) Alcohol-induced mood disorder Status: Acute (3) Nicotine dependence Status: Acute Qualifiers: Nicotine product type: cigarettes Substance use status: in withdrawal Qualified Code(s): F17.213 - Nicotine dependence, cigarettes, with withdrawal (4) Encounter for monitoring Suboxone maintenance therapy Status: Chronic (5) MDD (major depressive disorder) Status: Chronic Qualifiers: Major depression recurrence: unspecified whether recurrent Active/ Remission status: remission status unspecified Qualified Code(s): F32.9 - Major depressive disorder, single episode, unspecified - AMA Did Patient Leave Against Medical Advice: No
== END 2018-11-08 11:55 | disposition other institution (70) | DRG 773 ==
LOC: YASAS 09:46 → Y3N 14:23
PROVIDERS: ADMIT Surgery; ATTEND Surgery
PROC: HZ2ZZZZ Detoxification Services for Substance Abuse Treatment (ICD-10-PCS; principal; 2018-11-04)
DX: F10.230 Alcohol dependence with withdrawal, uncomplicated (principal); F10.24 Alcohol dependence with alcohol-induced mood disorder; F11.20 Opioid dependence, uncomplicated; F17.213 Nicotine dependence, cigarettes, with withdrawal; F32.9 Major depressive disorder, single episode, unspecified; K02.9 Dental caries, unspecified; D64.9 Anemia, unspecified; R73.9 Hyperglycemia, unspecified
CPT/HCPCS: 36415; 80053; 85027; 86593

== ENCOUNTER 2018-11-08 11:37 | Inpatient (IN) | payer OTHER ==
[2018-11-08 12:24] VITALS: BP 107/73; PULSE 62; TEMP 98.2
--- NOTE | 2018-11-08 13:27 | HP ---
[facility] Rehab Assess/Revision - Admission History Date of Admission to Rehab: 11/08/2018 - Vital signs Vital Signs: Vital Signs Period Temp Pulse Resp BP Sys/Galvan Pulse Ox Last 24 Hr 98.2 F 62 16 107/73 - Findings Detox History & Physical reviewed: Yes Concur with findings: Yes Comments/Additional Findings: PATIENT'S MEDICAL / MEDICATION HISTORY REVIEWED PRIOR TO DISCHARGE FROM DETOX UNIT. PER PSYCHAITRIST DR. Doreen WALKER, PATIENT IS PSYCHIATRICALLY STABLE AT THIS TIME. THEREFORE, PSYCHIATRIC MEDICATIONS ORDERED WHILE PATIENT WAS ADMITTED FOR DETOX TO BE CONTINUED ON ADMISSION TO [facility]. PATIENT WAS DISCHARGED FROM DETOX UNIT TO BE TAKEN OVER TO REHAB UNIT IN STABLE MEDICAL CONDITION. Inpatient Rehab Admission - Rehab Decision to Admit Inpatient rehab admission?: Yes - Initial Determination Are CD services needed?: Yes Free of communicable disease: Yes Not in need of hospitalization: Yes - Rehab Admission Criteria Previous failed treatment: No Poor recovery environment: Yes Comorbidities: Yes Lacks judgement: Yes Patient is meeting Inpatient Rehab admission criteria:: Yes
[2018-11-08] MEDS ORDERED: IBUPROFEN 400 MG TABLET (FP) PO PRN (13:40)
[2018-11-08] MEDS ORDERED: guaiFENesin 200 MG/10 ML 10 ML UNIT-DOSE CUPS PO PRN (13:40)
[2018-11-08] MEDS ORDERED: hydrOXYzine PAMOATE 50 MG CAPSULE (FP) PO PRN (13:40)
[2018-11-08] MEDS ORDERED: LOPERAMIDE HCL 2 MG CAPSULE PO PRN (13:40)
[2018-11-08] MEDS ORDERED: MAG HYDROX/AL HYDROX/SIMETH 30 ML UNIT-DOSE CUP PO PRN (13:40)
[2018-11-08] MEDS ORDERED: P-EPHED 60MG/TRIPROLIDI 2.5MG TABLET PO PRN (13:40)
[2018-11-08] MEDS ORDERED: MAGNESIUM CITRATE 300 ML BOTTLE PO PRN (13:40)
[2018-11-08] MEDS ORDERED: MENTHOL/PHENOL 1 EACH UD MM PRN (13:40)
[2018-11-08] MEDS ORDERED: NICOTINE POLACRILEX 2 MG GUM BUC PRN (13:40)
[2018-11-08] MEDS ORDERED: MAGNESIUM HYDROX 2400MG/30ML ORAL SUSPENSION 30 ML CUP PO PRN (13:40)
[2018-11-08] MEDS: busPIRone HCL 10 MG TABLET (FP) PO SCH (21:27)
[2018-11-08] MEDS: THIAMINE HCL 100 MG TABLET (FP) PO SCH (21:27)
[2018-11-08] MEDS: ACETAMINOPHEN 325 MG TABLET (FP) PO PRN (21:28)
[2018-11-08] MEDS: MIRTAZAPINE 30 MG TABLET (FP) PO SCH (21:28)
[2018-11-08] MEDS ORDERED: MELATONIN 5 MG TABLETS PO PRN (22:00)
[2018-11-08] MEDS ORDERED: busPIRone HCL 10 MG TABLET (FP) PO SCH (22:00)
[2018-11-09] MEDS ORDERED: BENZOCAINE 20 % GEL TUBE MM PRN (08:53)
--- NOTE | 2018-11-09 08:54 | PN ---
[facility] Progress Note Note: PT C/O TOOTHACHE. REQUESTING ANBESOL. SAW PT WHO REPORTS PAIN AND SWELLING TO LEFT JAWS. Vital Signs (72 hours) 11/08/18 11/09/18 11/09/18 12:24 00:30 03:30 Temperature 98.2 F Pulse Rate 62 Respiratory 16 16 16 Rate Blood Pressure 107/73 FACIAL/ORAL EXAM:SWELLING TO LEFT LOWER JAW OBSERVED EXTERNALLY. PAINFUL TO TOUCH. MULTIPLE TEETH IN STATE OF POOR REPAIR WITH OLD WORN OUT FILLINGS; GUMS RED AND SWELLING. A:1.GINGIVITIS 2. TOOTH ABSCESS PLAN:AUGMENTIN 875 MG PO BID X 10 DAYS ANBESOL DIRECTED LIDOCAINE SWISH AND SPIT IF ANBESOL NOT EFFECTIVE.
[2018-11-09] MEDS: busPIRone HCL 10 MG TABLET (FP) PO SCH ×2 (09:45→21:13)
[2018-11-09] MEDS: ACETAMINOPHEN 325 MG TABLET (FP) PO PRN ×2 (09:48→21:15)
[2018-11-09] MEDS ORDERED: PT OWN MED DRAWER 7, Y5N ONE (09:48)
[2018-11-09] MEDS: hydrOXYzine PAMOATE 50 MG CAPSULE (FP) PO PRN ×2 (09:50→21:14)
[2018-11-09] MEDS ORDERED: NICOTINE 21 MG/24 HOURS TOPICAL PATCH TD SCH (10:00)
[2018-11-09] MEDS ORDERED: BUPRENORPHINE/NALOXONE 8 MG/2 MG FILM PACKET SL SCH (10:00)
[2018-11-09] MEDS ORDERED: CITALOPRAM HYDROBROMIDE 10 MG TABLET (FP) PO SCH ×2 (10:00)
[2018-11-09] MEDS ORDERED: PRENATAL VITAMINS W/ FOLIC ACID TABLET (FP) PO SCH (10:00)
[2018-11-09] MEDS ORDERED: AMOX TR/POT CLAV 875MG/125MG TABLETS (FP) PO SCH (17:30)
[2018-11-09] MEDS: THIAMINE HCL 100 MG TABLET (FP) PO SCH (21:13)
[2018-11-09] MEDS: MIRTAZAPINE 30 MG TABLET (FP) PO SCH (21:13)
== END 2018-11-10 07:05 | disposition left against medical advice (07) | DRG 770 ==
LOC: YASAS 11:37 → Y3E 11:38
PROVIDERS: ADMIT Neuromusculoskeletal Medicine & OMM; ATTEND Neuromusculoskeletal Medicine & OMM
PROC: HZ42ZZZ Group Counseling for Substance Abuse Treatment, Cognitive-Behavioral (ICD-10-PCS; principal; 2018-11-08)
DX: F10.20 Alcohol dependence, uncomplicated (principal); F17.210 Nicotine dependence, cigarettes, uncomplicated; K04.7 Periapical abscess without sinus; K05.10 Chronic gingivitis, plaque induced; Z59.0 Homelessness

== ENCOUNTER 2020-02-24 08:37 | Inpatient (IN) | payer OTHER ==
--- NOTE | 2020-02-24 09:05 | BHS.RME ---
Substance Use & Tx History - Substance Use History Alcohol Substance amount: 4 nips Frequency of use: Daily Substance route: Oral Date of Last Use: 02/23/20 Heroin Substance amount: 4-5 bags Frequency of use: Daily Substance route: Inhalation (ex: sniffing or snorting) Date of Last Use: 02/24/20 Nicotine Substance amount: 1 pack Frequency of use: Daily Substance route: Smoking Date of Last Use: 02/24/20 COWS - Scale Resting Pulse: 1= MT 81-100 Sweatin= Chills/Flushing Restless Observation: 1= Difficult to Sit Still Pupil Size: 0= Normal to Room Light Bone or Joint Aches: 0= None Runny Nose/ Eye Tearin= None GI Upset > 30mins: 0= None Tremor Observation: 0= None Yawning Observation: 0= None Anxiety or Irritability: 0= None Goose Flesh Skin: 0=Smooth Skin (just used at 7am today) COWS Score: 3
[2020-02-24 10:01] VITALS: BMI 20.7
--- NOTE | 2020-02-24 10:21 | HP ---
COWS - Scale Resting Pulse: 1= DE 81-100 Sweatin= Chills/Flushing Restless Observation: 1= Difficult to Sit Still Pupil Size: 0= Normal to Room Light Bone or Joint Aches: 0= None Runny Nose/ Eye Tearin= None GI Upset > 30mins: 0= None Tremor Observation: 0= None Yawning Observation: 0= None Anxiety or Irritability: 0= None Goose Flesh Skin: 0=Smooth Skin (just used at 7am today) COWS Score: 3 CIWA Score - Admission Criteria [facility] Guidelines: Admission for Medically Managed Detox: Requires at least one of the followin. CIWA greater than 12 2. Seizures within the past 24 hours 3. Delirium tremens within the past 24 hours 4. Hallucinations within the past 24 hours 5. Acute intervention needed for co occurring medical disorder 6. Acute intervention needed for co occurring psychiatric disorder 7. Severe withdrawal that cannot be handled at a lower level of care (continued vomiting, continued diarrhea, abnormal vital signs) requiring intravenous medication and/or fluids 8. Admitting History and Physical - Admission Chief Complaint: " I want to stop using drugs." History of Present Illness: 39 year old male with history of alcohol use disorder, opioid dependence and nicotine dependence. She was abstinent for 1 year and relapsed 1 month ago due to stressors. Alcohol: 4 nips vodka every other day, started at age 11 and last used 02/23/20, blackouts last one 5 months ago. Does not endorse need for eye weighmaster Heroin: 5-6 bags IN, started at age 20 and last used today at 7AM., One overdose in 2017, carries no narcan Nicotine: 1 pack daily, started smoking at age 12 and last used today. PMH: None Psurg: None Psych: PTSD, Anxiety, Depression, Borderline Personality Disorder (Prazosin, Depakote, Vistaril, Abilify) Not very compliant with meds. Last taken 2 days ago. She is homeless living in the [facility]. BOLA: 0 COWS=3 due to use early at 7Am this morning, not yet in withdrawals Urine TOx: FEN,MTD, MOP admits to buying street methadone at times. Has no legal issues pending. She meets criteria for detox as she has poor recovery environment, poor judgment into her disease and multiple psychiatric co-morbidities which she is non- compliant with meds. History Source: Patient Limitations to Obtaining History: No Limitations - Past Medical History ...LMP: 02/10/20 ...: No Psych: Yes: Anxiety, Depression, Other (Personality Disorder and PTSD) - Past Surgical History Past Surgical History: Yes: None - Smoking History Smoking history: Current every day smoker Have you smoked in the past 12 months: Yes Aproximately how many cigarettes per day: 20 - Alcohol/Substance Use Hx Alcohol Use: Yes - Social History Usual Living Arrangement: Yes: Alone, Other Do you think of yourself as: Declined to answer ADL: Independent Occupation: unemployed History of Recent Travel: No Admission ROS S - HPI Allergies/Adverse Reactions: Allergies Allergy/AdvReac Type Severity Reaction Status Date / Time No Known Drug Allergies Allergy Verified 02/24/20 09:54 Pork/Porcine Containing AdvReac Severe Vomiting Verified 02/24/20 09:54 Products Patient History - Patient Medical History Hx Anemia: No Hx Asthma: No Hx Chronic Obstructive Pulmonary Disease (COPD): No Hx Cancer: No Hx Cardiac Disorders: No Hx Congestive Heart Failure: No Hx Hypertension: No Hx Hypercholesterolemia: No Hx Pacemaker: No HX Cerebrovascular Accident: No Hx Seizures: No Hx Dementia: No Hx Diabetes: No Hx Gastrointestinal Disorders: No Hx Liver Disease: No Hx Genitourinary Disorders: No Hx Sexually Transmitted Disorders: No Hx Renal Disease (ESRD): No Hx Thyroid Disease: No Hx Human Immunodeficiency Virus (HIV): No (09/28 negative) Hx Hepatitis C: No Hx Depression: Yes Hx Suicide Attempt: Yes (Pt tried to overdose in 2017) Hx Bipolar Disorder: No Hx Schizophrenia: No - Patient Surgical History Past Surgical History: No Hx Neurologic Surgery: No Hx Cataract Extraction: No Hx Cardiac Surgery: No Hx Lung Surgery: No Hx Breast Surgery: No Hx Breast Biopsy: No Hx Abdominal Surgery: No Hx Appendectomy: No Hx Cholecystectomy: No Hx Genitourinary Surgery: No Hx Section: No Hx Orthopedic Surgery: No Anesthesia Reaction: No - PPD History Previous Implant?: Yes Documented Results: Positive w/proof Implanted On Prior R Admission?: Yes Date: 10/20/18 Results: positive PPD to be Administered?: No - Reproductive History Last Menstrual Period: 02/10/20 Patient : No - Smoking Cessation Smoking history: Current every day smoker Have you smoked in the past 12 months: Yes Aproximately how many cigarettes per day: 20 Hx Chewing Tobacco Use: No Initiated information on smoking cessation: Yes 'Breaking Loose' booklet given: 02/24/20 - Substances abused Heroin Substance route: Inhalation Frequency: Daily Amount used: 5-6 BAGS Age of first use: 20 Date of last use: 02/24/20 Alcohol Substance route: Oral Frequency: Daily Amount used: 4 NIPS VODKA Age of first use: 11 Date of last use: 02/23/20 Admission Physical Exam [facility] - Vital Signs Vital Signs: Vital Signs - 24 hr 02/24/20 09:57 Temperature 99.4 F Pulse Rate 84 Respiratory 18 Rate Blood Pressure 116/80 - Physical General Appearance: Yes: Moderate Distress, Irritable, Sweating, Anxious HEENTM: Yes: EOMI, Hearing grossly Normal, Normal ENT Inspection, Normocephalic, Normal Voice, JHONNY, Pharynx Normal, Tm's normal Respiratory: Yes: Chest Non-Tender, Lungs Clear, Normal Breath Sounds, No Respiratory Distress, No Accessory Muscle Use Neck: Yes: No masses,lesions,Nodules, Supple, Trachea in good position Breast: Yes: Breast Exam Deferred Abdominal: Yes: Normal Bowel Sounds, Non Tender, Flat Genitourinary: Yes: Within Normal Limits Back: Yes: Normal Inspection Musculoskeletal: Yes: full range of Motion, Gait Steady, Pelvis Stable Extremities: Yes: Normal Capillary Refill, Normal Inspection, Normal Range of Motion, Non-Tender Neurological: Yes: composite mechanic II-XII NML intact, Fully Oriented, Alert, Motor Strength 5/5, Normal Mood/Affect, Normal Response Integumentary: Yes: Normal Color, Dry, Warm Lymphatic: Yes: Within Normal Limits - Diagnostic (1) Opioid dependence with withdrawal Current Visit: Yes Status: Acute (2) Anxiety and depression Current Visit: Yes Status: Acute (3) Nicotine dependence Current Visit: Yes Status: Acute Qualifiers: Nicotine product type: cigarettes Substance use status: in withdrawal Qualified Code(s): F17.213 - Nicotine dependence, cigarettes, with withdrawal (4) Personality disorder Current Visit: Yes Status: Acute (5) Weight loss Current Visit: Yes Status: Acute (6) MDD (major depressive disorder) Current Visit: Yes Status: Chronic Qualifiers: Major depression recurrence: unspecified whether recurrent Active/Remission status: remission status unspecified Qualified Code(s): F32.9 - Major depressive disorder, single episode, unspecified (7) History of positive PPD, treatment status unknown Current Visit: Yes Status: Acute (8) History of positive PPD Current Visit: Yes Status: Acute Cleared for Admission S - Detox or Rehab [facility] Level of Care: Medically Managed Detox Regimen/Protocol: Methadone Claeared for Rehab Admission: No Screened but not Admitted - Documentation of Visit Screened but not Admitted: No Breathalyzer - Breathalyzer Breathalyzer: 0 Inpatient Rehab Admission - Rehab Decision to Admit Inpatient rehab admission?: No
[2020-02-24] MEDS ORDERED: cloNIDine HCL 0.1 MG TABLET PO PRN (10:28)
[2020-02-24] MEDS ORDERED: MAGNESIUM CITRATE 300 ML BOTTLE PO PRN (10:28)
[2020-02-24] MEDS ORDERED: IBUPROFEN 400 MG TABLET (FP) PO PRN (10:28)
[2020-02-24] MEDS ORDERED: MENTHOL/PHENOL 1 EACH UD MM PRN (10:28)
[2020-02-24] MEDS ORDERED: METHOCARBAMOL 500 MG TABLET PO PRN (10:28)
[2020-02-24] MEDS ORDERED: MAGNESIUM HYDROX 2400MG/30ML ORAL SUSPENSION 30 ML CUP PO PRN (10:28)
[2020-02-24] MEDS ORDERED: BISMUTH SUBSALICYLATE 524 MG/30 ML UD PO PRN (10:28)
[2020-02-24] MEDS ORDERED: ONDANSETRON *ODT* 4 MG TABLET SL ONE (10:28)
[2020-02-24] MEDS ORDERED: METHADONE HCL 10 MG TABLET (FOR DETOX USE ONLY) PO ONE (10:28)
[2020-02-24] MEDS ORDERED: ACETAMINOPHEN 325 MG TABLET (FP) PO PRN ×2 (10:28)
[2020-02-24] MEDS ORDERED: MAG HYDROX/AL HYDROX/SIMETH 30 ML UNIT-DOSE CUP PO PRN (10:28)
[2020-02-24] MEDS: PRENATAL VITAMINS W/ FOLIC ACID TABLET (FP) PO SCH (12:24)
[2020-02-24] MEDS: NICOTINE POLACRILEX 2 MG GUM BUC PRN (12:24)
[2020-02-24] MEDS: NICOTINE 7 MG/24 HOURS TOPICAL PATCH TD SCH (12:24)
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
[2020-02-24] MEDS: hydrOXYzine PAMOATE 25 MG CAPSULE (FP) PO SCH ×3 (13:35→22:24)
[2020-02-24 14:55] LABS: HEMATOCRIT 37.3 % (32.4-45.2); HEMOGLOBIN 11.6 GM/dL (10.7-15.3); MCH 22.3 pg (25.7-33.7); MCHC 31.1 g/dl (32.0-36.0); MEAN CELL VOLUME 71.8 fl (80-96); MEAN PLT VOLUME 8.8 fl (7.5-11.1); PLATELET COUNT 314 K/MM3 (134-434); RBC 5.19 M/mm3 (3.60-5.2); RDW 15.5 % (11.6-15.6); WHITE BLOOD COUNT 10.6 K/mm3 (4.0-10.0)
[2020-02-24 15:11] LABS: ALBUMIN 4.2 g/dl (3.4-5.0); BILIRUBIN,TOTAL 0.4 mg/dL (0.2-1); BLOOD UREA NITROGEN 12.6 mg/dL (7-18); CALCIUM 9.4 mg/dL (8.5-10.1); CREATININE 0.8 mg/dL (0.55-1.3); POTASSIUM 4.1 mmol/L (3.5-5.1); TOT PROT 7.4 g/dl (6.4-8.2)
[2020-02-24] MEDS ORDERED: ARIPiprazole 5 MG TABLET PO SCH (22:00)
[2020-02-24] MEDS ORDERED: PRAZOSIN HCL 1 MG CAPSULE PO SCH (22:00)
[2020-02-24] MEDS ORDERED: THIAMINE HCL 100 MG TABLET (FP) PO SCH (22:00)
[2020-02-24] MEDS ORDERED: MELATONIN 5 MG TABLETS PO SCH (22:00)
[2020-02-24] MEDS: DIVALPROEX SODIUM 500 MG TABLET E.C. PO SCH (22:24)
[2020-02-25] MEDS: hydrOXYzine PAMOATE 25 MG CAPSULE (FP) PO SCH ×2 (06:23→10:34)
[2020-02-25] MEDS ORDERED: METHADONE HCL 10 MG TABLET (FOR DETOX USE ONLY) ONE (09:02)
[2020-02-25] MEDS ORDERED: METHADONE HCL 5 MG TABLET (FOR DETOX USE ONLY) ONE (09:03)
[2020-02-25] MEDS ORDERED: METHADONE (DETOX) 20 MG, METHADONE (DETOX) 5 MG PO ONE (10:00)
[2020-02-25] MEDS: PRENATAL VITAMINS W/ FOLIC ACID TABLET (FP) PO SCH (10:34)
[2020-02-25] MEDS: NICOTINE 7 MG/24 HOURS TOPICAL PATCH TD SCH (10:35)
[2020-02-25] MEDS: DIVALPROEX SODIUM 500 MG TABLET E.C. PO SCH (10:39)
[2020-02-25] MEDS: NICOTINE POLACRILEX 2 MG GUM BUC PRN (10:41)
[2020-02-25 10:47] VITALS: BP 114/80; PULSE 65; TEMP 97.1
[2020-02-25] MEDS ORDERED: MASKS NR ONE (11:17)
--- NOTE | 2020-02-25 15:18 | DS ---
[facility] Detox Discharge Summary Admission Date: 02/24/20 Discharge Date: 02/25/20 (Pt left AMA) - History Present History: Alcohol Dependence, Opioid Dependence Additional Comments: Pt left AMA. Pt did not complete the detox protocol. Pt states, "i just want to leave". An attempt to let pt stay and complete the detox protocol failed. Pt is encouraged to follow-up with an outpatient CD program and also to follow-up with her pmd which she verbalized understanding. Pt is AOX3, in no acute respiratory distress, Full ROM and ambulatory. Pertinent Past History: h/o alcohol and heroin use disorder. - Physical Exam Results Vital Signs: Vital Signs Temperature 97.1 F L 02/25/20 10:33 Pulse Rate 65 02/25/20 10:33 Respiratory Rate 18 02/25/20 10:33 Blood Pressure 114/80 02/25/20 10:33 O2 Sat by Pulse Oximetry (%) 100 02/25/20 06:13 Vital Signs 02/25/20 10:33 Temperature 97.1 F L Pulse Rate 65 Respiratory 18 Rate Blood Pressure 114/80 Laboratory Last Values WBC 10.6 K/mm3 (4.0-10.0) H 02/24/20 10:50 RBC 5.19 M/mm3 (3.60-5.2) 02/24/20 10:50 Hgb 11.6 GM/dL (10.7-15.3) 02/24/20 10:50 Hct 37.3 % (32.4-45.2) 02/24/20 10:50 MCV 71.8 fl (80-96) L 02/24/20 10:50 MCH 22.3 pg (25.7-33.7) L 02/24/20 10:50 MCHC 31.1 g/dl (32.0-36.0) L 02/24/20 10:50 RDW 15.5 % (11.6-15.6) 02/24/20 10:50 Plt Count 314 K/MM3 (134-434) 02/24/20 10:50 MPV 8.8 fl (7.5-11.1) 02/24/20 10:50 Sodium 137 mmol/L (136-145) 02/24/20 11:30 Potassium 4.1 mmol/L (3.5-5.1) 02/24/20 11:30 Chloride 101 mmol/L (98-107) 02/24/20 11:30 Carbon Dioxide 25 mmol/L (21-32) 02/24/20 11:30 Anion Gap 11 MMOL/L (8-16) 02/24/20 11:30 BUN 12.6 mg/dL (7-18) 02/24/20 11:30 Creatinine 0.8 mg/dL (0.55-1.3) 02/24/20 11:30 Est GFR (CKD-EPI)AfAm 107.64 02/24/20 11:30 Est GFR (CKD-EPI)NonAf 92.87 02/24/20 11:30 Random Glucose 90 mg/dL (74-106) 02/24/20 11:30 Calcium 9.4 mg/dL (8.5-10.1) 02/24/20 11:30 Total Bilirubin 0.4 mg/dL (0.2-1) 02/24/20 11:30 AST 15 U/L (15-37) 02/24/20 11:30 ALT 13 U/L (13-61) 02/24/20 11:30 Alkaline Phosphatase 82 U/L (45-117) 02/24/20 11:30 Total Protein 7.4 g/dl (6.4-8.2) 02/24/20 11:30 Albumin 4.2 g/dl (3.4-5.0) 02/24/20 11:30 Valproic Acid < 3.0 ug/mL (50-100) L 02/25/20 05:50 Syphilis Serology Non-reactive (NONREACTIVE) 02/24/20 10:50 Labs noted. Pertinent Admission Physical Exam Findings: withdrawal symptoms. - Treatment Hospital Course: Detox Protocol Followed - Medication Discharge Medications: Ambulatory Orders hydrOXYzine PAMOATE [Vistaril -] 50 mg PO TID 10/18/18 Aripiprazole [Abilify -] 5 mg PO DAILY 02/24/20 Divalproex [Depakote -] 500 mg PO BID 02/24/20 Prazosin HCl 1 mg PO DAILY 02/24/20 - Diagnosis (1) Alcohol dependence with uncomplicated withdrawal Status: Acute (2) Opioid dependence with withdrawal Status: Acute (3) Nicotine dependence Status: Chronic Qualifiers: Nicotine product type: cigarettes Substance use status: in withdrawal Qualified Code(s): F17.213 - Nicotine dependence, cigarettes, with withdrawal - AMA Did Patient Leave Against Medical Advice: Yes
[2020-02-26] MEDS ORDERED: METHADONE HCL 10 MG TABLET (FOR DETOX USE ONLY) PO ONE (10:00)
[2020-02-27] MEDS ORDERED: METHADONE (DETOX) 10 MG, METHADONE (DETOX) 5 MG PO ONE (10:00)
[2020-02-28] MEDS ORDERED: METHADONE HCL 10 MG TABLET (FOR DETOX USE ONLY) PO ONE (10:00)
[2020-02-29] MEDS ORDERED: METHADONE HCL 5 MG TABLET (FOR DETOX USE ONLY) PO ONE (06:00)
== END 2020-02-25 11:20 | disposition left against medical advice (07) | DRG 770 ==
LOC: YASAS 08:37 → Y3N 11:24
PROVIDERS: ADMIT Allergy & Immunology; ATTEND Allergy & Immunology
PROC: HZ2ZZZZ Detoxification Services for Substance Abuse Treatment (ICD-10-PCS; principal; 2020-02-24)
DX: F10.230 Alcohol dependence with withdrawal, uncomplicated (principal); F11.23 Opioid dependence with withdrawal; F17.213 Nicotine dependence, cigarettes, with withdrawal; F19.24 Other psychoactive substance dependence with psychoactive substance-induced mood disorder; F60.9 Personality disorder, unspecified; F41.8 Other specified anxiety disorders; F31.9 Bipolar disorder, unspecified; F43.10 Post-traumatic stress disorder, unspecified; D64.9 Anemia, unspecified; R76.11 Nonspecific reaction to tuberculin skin test without active tuberculosis; R63.4 Abnormal weight loss; Z62.810 Personal history of physical and sexual abuse in childhood; Z68.20 Body mass index [BMI] 20.0-20.9, adult; Z56.0 Unemployment, unspecified; Z59.0 Homelessness; Z91.018 Allergy to other foods
CPT/HCPCS: 36415; 80053; 80164; 81025; 85027; 86780; U0003

== ENCOUNTER 2020-11-30 21:46 | Emergency (ER) | payer OTHER ==
[2020-11-30 21:50] VITALS: BP 127/85; PULSE 71; TEMP 98; BMI 20.2
[2020-11-30] MEDS ORDERED: METOCLOPRAMIDE HCL INJECTION 10 MG/2 ML VIAL IVPUSH ONE (22:17)
[2020-11-30] MEDS ORDERED: SODIUM CHLORIDE 1,000 ML IV STA (22:17)
[2020-11-30] MEDS ORDERED: ACETAMINOPHEN 1000 MG/100 ML VIAL (NON FORMULARY) IVPB ONE (22:17)
[2020-11-30] MEDS ORDERED: METOCLOPRAMIDE HCL INJECTION 10 MG/2 ML VIAL ONE (22:33)
[2020-11-30] MEDS ORDERED: ACETAMINOPHEN INJECTION 100 ML IVPB ONE (22:33)
[2020-11-30] MEDS ORDERED: clonazePAM 2 MG TABLET PO ONE (22:49)
[2020-11-30] MEDS ORDERED: clonazePAM 0.5 MG TABLET ONE (22:53)
== END 2020-12-01 00:41 | disposition home or self-care (01) ==
LOC: JER 21:46
PROC: 3E0333Z Introduction of Anti-inflammatory into Peripheral Vein, Percutaneous Approach (ICD-10-PCS; principal; 2020-11-30)
PROC: 3E033GC Introduction of Other Therapeutic Substance into Peripheral Vein, Percutaneous Approach (ICD-10-PCS; 2020-11-30)
PROC: 3E0337Z Introduction of Electrolytic and Water Balance Substance into Peripheral Vein, Percutaneous Approach (ICD-10-PCS; 2020-11-30)
DX: R51.9 Headache, unspecified (principal)
CPT/HCPCS: 99284-25; J0131

== ENCOUNTER 2020-12-01 09:08 | Inpatient (IN) | payer OTHER ==
[2020-12-01 11:46] VITALS: BMI 17.6
[2020-12-01] MEDS ORDERED: chlordiazePOXIDE HCL 25 MG CAPSULE PO PRN (12:08)
[2020-12-01] MEDS ORDERED: MAG HYDROX/AL HYDROX/SIMETH 30 ML UNIT-DOSE CUP PO PRN (12:08)
[2020-12-01] MEDS ORDERED: IBUPROFEN 400 MG TABLET (FP) PO PRN (12:08)
[2020-12-01] MEDS ORDERED: ACETAMINOPHEN 325 MG TABLET (FP) PO PRN ×2 (12:08)
[2020-12-01] MEDS ORDERED: MAGNESIUM HYDROX 2400MG/30ML ORAL SUSPENSION 30 ML CUP PO PRN (12:08)
[2020-12-01] MEDS ORDERED: NICOTINE POLACRILEX 2 MG GUM BUC PRN (12:08)
[2020-12-01] MEDS ORDERED: MENTHOL/PHENOL 1 EACH UD MM PRN (12:08)
[2020-12-01] MEDS ORDERED: BISMUTH SUBSALICYLATE 524 MG/30 ML UD PO PRN (12:08)
[2020-12-01] MEDS ORDERED: MAGNESIUM CITRATE 300 ML BOTTLE PO PRN (12:08)
[2020-12-01] MEDS ORDERED: METHOCARBAMOL 500 MG TABLET PO PRN (12:08)
[2020-12-01] MEDS ORDERED: ONDANSETRON *ODT* 4 MG TABLET SL PRN (12:08)
[2020-12-01] MEDS: hydrOXYzine PAMOATE 25 MG CAPSULE (FP) PO SCH ×3 (14:11→22:13)
[2020-12-01] MEDS: NICOTINE 21 MG/24 HOURS TOPICAL PATCH TD SCH (14:16)
[2020-12-01] MEDS: chlordiazePOXIDE HCL 25 MG CAPSULE PO SCH ×2 (17:34→22:13)
[2020-12-01] MEDS ORDERED: MELATONIN 5 MG TABLETS PO SCH (22:00)
[2020-12-01] MEDS ORDERED: THIAMINE HCL 100 MG TABLET (FP) PO SCH (22:00)
[2020-12-02] MEDS: hydrOXYzine PAMOATE 25 MG CAPSULE (FP) PO SCH ×2 (06:44→10:12)
[2020-12-02] MEDS: chlordiazePOXIDE HCL 25 MG CAPSULE PO SCH ×2 (06:45→10:12)
[2020-12-02 09:05] VITALS: TEMP 98
[2020-12-02] MEDS ORDERED: BUPRENORPHINE/NALOXONE 8 MG/2 MG FILM PACKET SL SCH (10:00)
[2020-12-02] MEDS ORDERED: PRENATAL VITAMINS W/ FOLIC ACID TABLET (FP) PO SCH (10:00)
[2020-12-02] MEDS: NICOTINE 21 MG/24 HOURS TOPICAL PATCH TD SCH (10:11)
[2020-12-02 10:55] LABS: ALBUMIN 3.3 g/dl (3.4-5.0); CALCIUM 9.3 mg/dL (8.5-10.1)
[2020-12-02 10:56] LABS: BLOOD UREA NITROGEN 14.8 mg/dL (7-18)
[2020-12-02 10:57] VITALS: BP 115/76; PULSE 92
[2020-12-02 10:59] LABS: CREATININE 0.7 mg/dL (0.55-1.3)
[2020-12-02 11:00] LABS: BILIRUBIN,TOTAL 0.4 mg/dL (0.2-1); TOT PROT 6.9 g/dl (6.4-8.2)
[2020-12-02] MEDS ORDERED: PRAZOSIN HCL 1 MG CAPSULE PO SCH (22:00)
[2020-12-02] MEDS ORDERED: ARIPiprazole 5 MG TABLET PO SCH (22:00)
[2020-12-03] MEDS ORDERED: chlordiazePOXIDE HCL 25 MG CAPSULE PO SCH (05:00)
[2020-12-04] MEDS ORDERED: chlordiazePOXIDE HCL 10 MG CAPSULE PO PRN
[2020-12-04] MEDS ORDERED: chlordiazePOXIDE HCL 10 MG CAPSULE PO SCH (05:00)
[2020-12-05] MEDS ORDERED: chlordiazePOXIDE HCL 10 MG CAPSULE PO SCH (05:00)
[2020-12-06] MEDS ORDERED: chlordiazePOXIDE HCL 10 MG CAPSULE PO ONE (05:00)
== END 2020-12-02 13:53 | disposition left against medical advice (07) | DRG 770 ==
LOC: YASAS 09:08 → Y6N 13:20 → Y3N 12-02 13:15 → Y6N 12-02 13:22
PROVIDERS: ADMIT Allergy & Immunology; ATTEND Allergy & Immunology
PROC: HZ2ZZZZ Detoxification Services for Substance Abuse Treatment (ICD-10-PCS; principal; 2020-12-01)
DX: F13.230 Sedative, hypnotic or anxiolytic dependence with withdrawal, uncomplicated (principal); F14.20 Cocaine dependence, uncomplicated; F11.20 Opioid dependence, uncomplicated; F10.20 Alcohol dependence, uncomplicated; F12.20 Cannabis dependence, uncomplicated; F17.210 Nicotine dependence, cigarettes, uncomplicated; F19.282 Other psychoactive substance dependence with psychoactive substance-induced sleep disorder; F19.24 Other psychoactive substance dependence with psychoactive substance-induced mood disorder; R76.11 Nonspecific reaction to tuberculin skin test without active tuberculosis; R63.4 Abnormal weight loss; Z68.1 Body mass index [BMI] 19.9 or less, adult; Z51.81 Encounter for therapeutic drug level monitoring; Z56.0 Unemployment, unspecified; Z59.0 Homelessness
CPT/HCPCS: 36415; 80053; 81025; 86780; 99284-25; C9803; J0131; U0003; U0005

== ENCOUNTER 2021-02-15 12:00 | Inpatient (IN) | payer OTHER ==
[2021-02-15 12:44] VITALS: BMI 16.2
[2021-02-15] MEDS ORDERED: IBUPROFEN 400 MG TABLET (FP) PO PRN (13:21)
[2021-02-15] MEDS ORDERED: MENTHOL/PHENOL 1 EACH UD MM PRN (13:21)
[2021-02-15] MEDS ORDERED: diazePAM 5 MG TABLET PO PRN (13:21)
[2021-02-15] MEDS ORDERED: ACETAMINOPHEN 325 MG TABLET (FP) PO PRN ×2 (13:21)
[2021-02-15] MEDS ORDERED: ONDANSETRON *ODT* 4 MG TABLET SL PRN (13:21)
[2021-02-15] MEDS ORDERED: NICOTINE POLACRILEX 2 MG GUM BUC PRN (13:21)
[2021-02-15] MEDS ORDERED: METHOCARBAMOL 500 MG TABLET PO PRN (13:21)
[2021-02-15] MEDS ORDERED: MAGNESIUM HYDROX 2400MG/30ML ORAL SUSPENSION 30 ML CUP PO PRN (13:21)
[2021-02-15] MEDS ORDERED: MAGNESIUM CITRATE 300 ML BOTTLE PO PRN (13:21)
[2021-02-15] MEDS ORDERED: BISMUTH SUBSALICYLATE 524 MG/30 ML PO PRN (13:21)
[2021-02-15] MEDS ORDERED: MAG HYDROX/AL HYDROX/SIMETH 30 ML UNIT-DOSE CUP PO PRN (13:21)
[2021-02-15] MEDS ORDERED: hydrOXYzine PAMOATE 25 MG CAPSULE (FP) PO SCH (14:00)
[2021-02-15] MEDS: PRENATAL VITAMINS W/ FOLIC ACID TABLET (FP) PO SCH (14:44)
[2021-02-15] MEDS: diazePAM 5 MG TABLET PO SCH ×3 (14:44→23:13)
[2021-02-15] MEDS: hydrOXYzine PAMOATE 50 MG CAPSULE (FP) PO SCH ×2 (14:45→23:13)
[2021-02-15 16:26] LABS: HEMATOCRIT 33.7 % (32.4-45.2); HEMOGLOBIN 10.5 GM/dL (10.7-15.3); MCH 22.1 pg (25.7-33.7); MCHC 31.2 g/dl (32.0-36.0); MEAN CELL VOLUME 70.7 fl (80-96); MEAN PLT VOLUME 8.5 fl (7.5-11.1); PLATELET COUNT 260 10^3/uL (134-434); RBC 4.77 M/mm3 (3.60-5.2); RDW 17.1 % (11.6-15.6); WHITE BLOOD COUNT 11.8 K/mm3 (4.0-10.0)
[2021-02-15 16:30] LABS: ALBUMIN 3.8 g/dl (3.4-5.0); CALCIUM 8.9 mg/dL (8.5-10.1)
[2021-02-15 16:31] LABS: BLOOD UREA NITROGEN 23.3 mg/dL (7-18)
[2021-02-15 16:34] LABS: BILIRUBIN,TOTAL 0.5 mg/dL (0.2-1); CREATININE 0.8 mg/dL (0.55-1.3); TOT PROT 6.8 g/dl (6.4-8.2)
[2021-02-15] MEDS ORDERED: THIAMINE HCL 100 MG TABLET (FP) PO SCH (22:00)
[2021-02-15] MEDS ORDERED: MELATONIN 5 MG TABLETS PO SCH (22:00)
[2021-02-15] MEDS: DIVALPROEX SODIUM 500 MG TABLET E.C. PO SCH (22:58)
[2021-02-16] MEDS: diazePAM 5 MG TABLET PO SCH ×2 (06:16→11:16)
[2021-02-16] MEDS: hydrOXYzine PAMOATE 50 MG CAPSULE (FP) PO SCH (08:17)
[2021-02-16] MEDS ORDERED: BUPRENORPHINE/NALOXONE 8 MG/2 MG FILM PACKET SL SCH (10:00)
[2021-02-16] MEDS ORDERED: DEXTROAMPHETAMINE/AMPHETAMINE 10 MG CAP.ER.24H PO SCH (10:00)
[2021-02-16] MEDS ORDERED: PRAZOSIN HCL 1 MG CAPSULE PO SCH (10:00)
[2021-02-16] MEDS: PRENATAL VITAMINS W/ FOLIC ACID TABLET (FP) PO SCH (11:16)
[2021-02-16] MEDS: DIVALPROEX SODIUM 500 MG TABLET E.C. PO SCH (11:16)
[2021-02-16 13:52] VITALS: BP 114/77; PULSE 85; TEMP 97.1
[2021-02-17] MEDS ORDERED: diazePAM 5 MG TABLET PO SCH (06:00)
[2021-02-18] MEDS ORDERED: diazePAM 5 MG TABLET PO SCH (06:00)
[2021-02-19] MEDS ORDERED: diazePAM 5 MG TABLET PO ONE (06:00)
== END 2021-02-16 13:10 | disposition left against medical advice (07) | DRG 770 ==
LOC: YASAS 12:00 → Y3N 13:01
PROVIDERS: ADMIT Allergy & Immunology; ATTEND Allergy & Immunology
PROC: HZ2ZZZZ Detoxification Services for Substance Abuse Treatment (ICD-10-PCS; principal; 2021-02-15)
DX: F10.230 Alcohol dependence with withdrawal, uncomplicated (principal); F11.20 Opioid dependence, uncomplicated; F13.20 Sedative, hypnotic or anxiolytic dependence, uncomplicated; F14.20 Cocaine dependence, uncomplicated; F12.20 Cannabis dependence, uncomplicated; F17.210 Nicotine dependence, cigarettes, uncomplicated; F41.8 Other specified anxiety disorders; F32.9 Major depressive disorder, single episode, unspecified; F60.9 Personality disorder, unspecified; R76.11 Nonspecific reaction to tuberculin skin test without active tuberculosis; Z91.018 Allergy to other foods; Z59.0 Homelessness
CPT/HCPCS: 36415; 80053; 81025; 85027; 86780; C9803; U0003; U0005

== ENCOUNTER 2021-05-06 10:16 | Inpatient (IN) | payer OTHER ==
[2021-05-06 11:16] VITALS: BMI 16.8
[2021-05-06] MEDS ORDERED: MENTHOL/PHENOL 1 EACH UD MM PRN (16:41)
[2021-05-06] MEDS ORDERED: cloNIDine HCL 0.1 MG TABLET PO PRN (16:41)
[2021-05-06] MEDS ORDERED: MAG HYDROX/AL HYDROX/SIMETH 30 ML UNIT-DOSE CUP PO PRN (16:41)
[2021-05-06] MEDS ORDERED: METHOCARBAMOL 500 MG TABLET PO PRN (16:41)
[2021-05-06] MEDS ORDERED: NICOTINE 10 MG CARTRIDGE (INHALER) IH PRN (16:41)
[2021-05-06] MEDS ORDERED: BISMUTH SUBSALICYLATE 524 MG/30 ML PO PRN (16:41)
[2021-05-06] MEDS ORDERED: clonazePAM 0.5 MG ODT TABLETS SL PRN (16:41)
[2021-05-06] MEDS ORDERED: MAGNESIUM HYDROX 2400MG/30ML ORAL SUSPENSION 30 ML CUP PO PRN (16:41)
[2021-05-06] MEDS ORDERED: MAGNESIUM CITRATE 300 ML BOTTLE PO PRN (16:41)
[2021-05-06] MEDS ORDERED: IBUPROFEN 400 MG TABLET (FP) PO PRN (16:41)
[2021-05-06] MEDS ORDERED: NALOXONE (NARCAN) HCL 4 MG/0.1 ML SPRAY NS PRN (16:41)
[2021-05-06] MEDS ORDERED: ACETAMINOPHEN 325 MG TABLET (FP) PO PRN ×2 (16:41)
[2021-05-06] MEDS ORDERED: ONDANSETRON *ODT* 4 MG TABLET SL PRN (16:41)
[2021-05-06] MEDS: hydrOXYzine PAMOATE 25 MG CAPSULE (FP) PO SCH ×2 (18:11→23:22)
[2021-05-06] MEDS ORDERED: methaDONE HCL 10 MG TABLET (FOR DETOX USE ONLY) PO ONE (18:30)
[2021-05-06] MEDS: NICOTINE 21 MG/24 HOURS TOPICAL PATCH TD SCH (18:47)
[2021-05-06] MEDS: MELATONIN 5 MG TABLETS PO SCH (23:21)
[2021-05-06] MEDS: THIAMINE HCL 100 MG TABLET (FP) PO SCH (23:22)
[2021-05-07] MEDS: hydrOXYzine PAMOATE 25 MG CAPSULE (FP) PO SCH ×2 (06:04→11:11)
[2021-05-07] MEDS: diazePAM 5 MG TABLET PO PRN ×2 (10:38→19:52)
[2021-05-07] MEDS: NICOTINE 21 MG/24 HOURS TOPICAL PATCH TD SCH (10:39)
[2021-05-07 11:41] LABS: HEMATOCRIT 37.2 % (32.4-45.2); HEMOGLOBIN 11.8 GM/dL (10.7-15.3); MCH 22.9 pg (25.7-33.7); MCHC 31.7 g/dl (32.0-36.0); MEAN CELL VOLUME 72.3 fl (80-96); MEAN PLT VOLUME 8.2 fl (7.5-11.1); PLATELET COUNT 301 10^3/uL (134-434); RBC 5.14 M/mm3 (3.60-5.2); RDW 15.5 % (11.6-15.6); WHITE BLOOD COUNT 9.6 K/mm3 (4.0-10.0)
[2021-05-07 11:52] LABS: ALBUMIN 3.4 g/dl (3.4-5.0)
[2021-05-07 11:53] LABS: BLOOD UREA NITROGEN 12.4 mg/dL (7-18)
[2021-05-07 11:56] LABS: CREATININE 0.7 mg/dL (0.55-1.3)
[2021-05-07 11:57] LABS: BILIRUBIN,TOTAL 0.6 mg/dL (0.2-1)
[2021-05-07] MEDS ORDERED: hydrOXYzine PAMOATE 25 MG CAPSULE (FP) PO PRN (12:49)
[2021-05-07] MEDS ORDERED: ONDANSETRON *ODT* 4 MG TABLET SL ONE (13:45)
[2021-05-07] MEDS ORDERED: LOPERAMIDE HCL 2 MG CAPSULE PO ONE (13:45)
[2021-05-07] MEDS: ARIPiprazole 5 MG TABLET PO SCH (15:20)
[2021-05-07] MEDS ORDERED: PRAZOSIN HCL 1 MG CAPSULE PO SCH (22:00)
[2021-05-07] MEDS: DIVALPROEX NA *ER* EXTEND REL 250 MG TABLET.SA PO SCH (22:54)
[2021-05-07] MEDS: MELATONIN 5 MG TABLETS PO SCH (22:54)
[2021-05-07] MEDS: THIAMINE HCL 100 MG TABLET (FP) PO SCH (22:54)
[2021-05-08 09:23] VITALS: BP 106/65; PULSE 70; TEMP 98
[2021-05-08] MEDS ORDERED: methaDONE HCL 10 MG TABLET (FOR DETOX USE ONLY) PO ONE (10:00)
[2021-05-08] MEDS: ARIPiprazole 5 MG TABLET PO SCH (10:31)
[2021-05-08] MEDS: NICOTINE 21 MG/24 HOURS TOPICAL PATCH TD SCH (10:31)
[2021-05-08] MEDS: DIVALPROEX NA *ER* EXTEND REL 250 MG TABLET.SA PO SCH (10:31)
== END 2021-05-08 10:10 | disposition left against medical advice (07) | DRG 770 ==
LOC: YASAS 10:16 → Y6N 17:31
PROVIDERS: ADMIT Allergy & Immunology; ATTEND Allergy & Immunology
PROC: HZ2ZZZZ Detoxification Services for Substance Abuse Treatment (ICD-10-PCS; principal; 2021-05-06)
DX: F11.23 Opioid dependence with withdrawal (principal); F10.230 Alcohol dependence with withdrawal, uncomplicated; F10.24 Alcohol dependence with alcohol-induced mood disorder; F10.282 Alcohol dependence with alcohol-induced sleep disorder; F13.230 Sedative, hypnotic or anxiolytic dependence with withdrawal, uncomplicated; F14.20 Cocaine dependence, uncomplicated; F12.20 Cannabis dependence, uncomplicated; F17.213 Nicotine dependence, cigarettes, with withdrawal; F90.9 Attention-deficit hyperactivity disorder, unspecified type; F31.70 Bipolar disorder, currently in remission, most recent episode unspecified; F19.280 Other psychoactive substance dependence with psychoactive substance-induced anxiety disorder; F19.282 Other psychoactive substance dependence with psychoactive substance-induced sleep disorder; F43.10 Post-traumatic stress disorder, unspecified; R63.4 Abnormal weight loss; Z86.11 Personal history of tuberculosis; Z62.810 Personal history of physical and sexual abuse in childhood; Z56.0 Unemployment, unspecified; Z59.0 Homelessness
CPT/HCPCS: 36415; 80053; 80307; 81025; 85025; 85027; 86780; 93005; 93010; 99281-25; C9803; J0735; U0003; U0005

== ENCOUNTER 2021-12-24 10:32 | Inpatient (IN) | payer OTHER ==
[2021-12-24] MEDS ORDERED: METHOCARBAMOL 500 MG TABLET PO PRN (11:21)
[2021-12-24] MEDS ORDERED: LOPERAMIDE HCL 2 MG CAPSULE PO PRN (11:21)
[2021-12-24] MEDS ORDERED: NICOTINE POLACRILEX 4 MG GUM BUC PRN (11:21)
[2021-12-24] MEDS ORDERED: ACETAMINOPHEN 325 MG TABLET (FP) PO PRN ×2 (11:21)
[2021-12-24] MEDS ORDERED: BISMUTH SUBSALICYLATE 262 MG/15 ML BTL PO PRN (11:21)
[2021-12-24] MEDS ORDERED: MAGNESIUM HYDROX 2400MG/30ML ORAL SUSPENSION 30 ML CUP PO PRN (11:21)
[2021-12-24] MEDS ORDERED: cloNIDine HCL 0.1 MG TABLET PO PRN (11:21)
[2021-12-24] MEDS ORDERED: methaDONE HCL 10 MG TABLET (FOR DETOX USE ONLY) PO ONE (11:21)
[2021-12-24] MEDS ORDERED: ONDANSETRON *ODT* 4 MG TABLET SL PRN (11:21)
[2021-12-24] MEDS ORDERED: MAGNESIUM CITRATE 300 ML BOTTLE PO PRN (11:21)
[2021-12-24] MEDS ORDERED: IBUPROFEN 400 MG TABLET (FP) PO PRN (11:21)
[2021-12-24] MEDS ORDERED: MAG HYDROX/AL HYDROX/SIMETH 30 ML UNIT-DOSE CUP PO PRN (11:21)
[2021-12-24] MEDS ORDERED: DICYCLOMINE HCL 10 MG CAPSULE PO PRN (11:21)
[2021-12-24] MEDS ORDERED: NALOXONE HCL (KLOXXADO) 8 MG SPRAY NS PRN (11:21)
[2021-12-24] MEDS ORDERED: BENZOCAINE/MENTHOL (CHLORASEPTIC ) LOZENGE MM PRN (11:21)
[2021-12-24 12:04] VITALS: BMI 15.4
[2021-12-24] MEDS ORDERED: methaDONE HCL 10 MG TABLET (FOR DETOX USE ONLY) ONE (12:11)
[2021-12-24] MEDS: hydrOXYzine PAMOATE 25 MG CAPSULE (FP) PO SCH ×3 (13:15→21:49)
[2021-12-24] MEDS: PRENATAL VITAMINS W/ FOLIC ACID TABLET (FP) PO SCH (13:15)
[2021-12-24] MEDS: NICOTINE 21 MG/24 HOURS TOPICAL PATCH TD SCH (13:16)
[2021-12-24 17:14] LABS: HIV INTERPRETATION NEGATIVE (NEGATIVE)
[2021-12-24] MEDS: diazePAM 5 MG TABLET PO SCH ×2 (17:55→22:36)
[2021-12-24] MEDS: MELATONIN 5 MG TABLETS PO SCH (21:48)
[2021-12-24] MEDS: THIAMINE HCL 100 MG TABLET (FP) PO SCH (21:49)
[2021-12-25] MEDS: hydrOXYzine PAMOATE 25 MG CAPSULE (FP) PO SCH ×5 (06:33→22:58)
[2021-12-25] MEDS: diazePAM 5 MG TABLET PO SCH ×4 (06:33→22:59)
[2021-12-25] MEDS ORDERED: methaDONE HCL 10 MG TABLET (FOR DETOX USE ONLY) ONE (09:07)
[2021-12-25 09:38] LABS: HEMATOCRIT 36.9 % (32.4-45.2); HEMOGLOBIN 11.6 GM/dL (10.7-15.3); MCH 22.2 pg (25.7-33.7); MCHC 31.4 g/dl (32.0-36.0); MEAN CELL VOLUME 70.7 fl (80-96); PLATELET COUNT 302 10^3/uL (134-434); RBC 5.22 M/mm3 (3.60-5.2); RDW 15.9 % (11.6-15.6)
[2021-12-25 09:52] LABS: CALCIUM 9.1 mg/dL (8.5-10.1)
[2021-12-25 09:53] LABS: ALBUMIN 3.6 g/dl (3.4-5.0); BLOOD UREA NITROGEN 13.8 mg/dL (7-18)
[2021-12-25 09:57] LABS: CREATININE 0.8 mg/dL (0.55-1.3)
[2021-12-25 09:58] LABS: BILIRUBIN,TOTAL 0.6 mg/dL (0.2-1); TOT PROT 6.8 g/dl (6.4-8.2)
[2021-12-25] MEDS ORDERED: ARIPiprazole 5 MG TABLET PO SCH (10:00)
[2021-12-25] MEDS: PRENATAL VITAMINS W/ FOLIC ACID TABLET (FP) PO SCH (10:21)
[2021-12-25] MEDS: NICOTINE 21 MG/24 HOURS TOPICAL PATCH TD SCH (10:22)
[2021-12-25] MEDS: diazePAM 5 MG TABLET PO PRN (14:05)
[2021-12-25] MEDS: PRAZOSIN HCL 1 MG CAPSULE PO SCH (22:58)
[2021-12-25] MEDS: THIAMINE HCL 100 MG TABLET (FP) PO SCH (22:58)
[2021-12-25] MEDS: ARIPiprazole 5 MG TABLET PO SCH (23:03)
[2021-12-25] MEDS: DIVALPROEX SODIUM 250 MG TABLET E.C. PO SCH (23:03)
[2021-12-25] MEDS: MELATONIN 5 MG TABLETS PO SCH (23:04)
[2021-12-26] MEDS: hydrOXYzine PAMOATE 25 MG CAPSULE (FP) PO SCH ×5 (07:23→22:31)
[2021-12-26] MEDS: diazePAM 5 MG TABLET PO SCH ×3 (07:23→22:31)
[2021-12-26] MEDS ORDERED: methaDONE HCL 10 MG TABLET (FOR DETOX USE ONLY) PO ONE (10:00)
[2021-12-26] MEDS: PRENATAL VITAMINS W/ FOLIC ACID TABLET (FP) PO SCH (10:18)
[2021-12-26] MEDS: NICOTINE 21 MG/24 HOURS TOPICAL PATCH TD SCH (10:18)
[2021-12-26] MEDS: DIVALPROEX SODIUM 250 MG TABLET E.C. PO SCH ×2 (10:19→22:31)
[2021-12-26] MEDS: diazePAM 5 MG TABLET PO PRN ×2 (11:25→17:59)
[2021-12-26 16:10] LABS: SARS-CoV-2 NAA Not Detected (Not Detected)
[2021-12-26] MEDS: ARIPiprazole 5 MG TABLET PO SCH (22:31)
[2021-12-26] MEDS: MELATONIN 5 MG TABLETS PO SCH (22:32)
[2021-12-26] MEDS: THIAMINE HCL 100 MG TABLET (FP) PO SCH (22:32)
[2021-12-26] MEDS: PRAZOSIN HCL 1 MG CAPSULE PO SCH (23:02)
[2021-12-27] MEDS: hydrOXYzine PAMOATE 25 MG CAPSULE (FP) PO SCH ×5 (06:55→22:50)
[2021-12-27] MEDS: diazePAM 5 MG TABLET PO SCH ×2 (06:56→17:44)
[2021-12-27] MEDS ORDERED: methaDONE HCL 10 MG TABLET (FOR DETOX USE ONLY) ONE (09:53)
[2021-12-27] MEDS: NICOTINE 21 MG/24 HOURS TOPICAL PATCH TD SCH (10:16)
[2021-12-27] MEDS: PRENATAL VITAMINS W/ FOLIC ACID TABLET (FP) PO SCH (10:16)
[2021-12-27] MEDS: DIVALPROEX SODIUM 250 MG TABLET E.C. PO SCH ×2 (10:17→22:50)
[2021-12-27] MEDS: diazePAM 5 MG TABLET PO PRN (10:22)
[2021-12-27] MEDS: ARIPiprazole 5 MG TABLET PO SCH (22:50)
[2021-12-27] MEDS: THIAMINE HCL 100 MG TABLET (FP) PO SCH (22:51)
[2021-12-27] MEDS: MELATONIN 5 MG TABLETS PO SCH (22:51)
[2021-12-27] MEDS: PRAZOSIN HCL 1 MG CAPSULE PO SCH (22:53)
[2021-12-28] MEDS ORDERED: diazePAM 5 MG TABLET PO ONE (06:00)
[2021-12-28] MEDS: hydrOXYzine PAMOATE 25 MG CAPSULE (FP) PO SCH ×5 (06:31→22:32)
[2021-12-28] MEDS ORDERED: methaDONE HCL 10 MG TABLET (FOR DETOX USE ONLY) PO ONE (10:00)
[2021-12-28] MEDS: PRENATAL VITAMINS W/ FOLIC ACID TABLET (FP) PO SCH (10:18)
[2021-12-28] MEDS: NICOTINE 21 MG/24 HOURS TOPICAL PATCH TD SCH (10:19)
[2021-12-28] MEDS: DIVALPROEX SODIUM 250 MG TABLET E.C. PO SCH ×2 (10:19→22:32)
[2021-12-28] MEDS: ARIPiprazole 5 MG TABLET PO SCH (22:32)
[2021-12-28] MEDS: MELATONIN 5 MG TABLETS PO SCH (22:32)
[2021-12-28] MEDS: THIAMINE HCL 100 MG TABLET (FP) PO SCH (22:33)
[2021-12-28] MEDS: PRAZOSIN HCL 1 MG CAPSULE PO SCH (23:01)
[2021-12-29] MEDS: hydrOXYzine PAMOATE 25 MG CAPSULE (FP) PO SCH (06:22)
[2021-12-29 08:57] VITALS: BP 108/71; PULSE 108; TEMP 97.3
== END 2021-12-29 08:59 | disposition home or self-care (01) | DRG 773 ==
LOC: YASAS 10:32 → Y3N 11:44
PROVIDERS: ADMIT Allergy & Immunology; ATTEND Surgery
PROC: HZ2ZZZZ Detoxification Services for Substance Abuse Treatment (ICD-10-PCS; principal; 2021-12-24)
DX: F10.230 Alcohol dependence with withdrawal, uncomplicated (principal); F11.20 Opioid dependence, uncomplicated; F13.20 Sedative, hypnotic or anxiolytic dependence, uncomplicated; F14.20 Cocaine dependence, uncomplicated; F17.210 Nicotine dependence, cigarettes, uncomplicated; F31.70 Bipolar disorder, currently in remission, most recent episode unspecified; F43.10 Post-traumatic stress disorder, unspecified; R73.9 Hyperglycemia, unspecified; R76.11 Nonspecific reaction to tuberculin skin test without active tuberculosis; Z62.810 Personal history of physical and sexual abuse in childhood; Z91.014 Allergy to mammalian meats
CPT/HCPCS: 36415; 80053; 85027; 86704; 86705; 86780; 86803; 87340; 87389; 87517; 93005; 93010; C9803-CS; U0003; U0005

== ENCOUNTER 2021-12-31 10:18 | Inpatient (IN) | payer OTHER ==
[2021-12-31] MEDS ORDERED: P-EPHED 60MG/TRIPROLIDI 2.5MG TABLET PO PRN (11:12)
[2021-12-31] MEDS ORDERED: LOPERAMIDE HCL 2 MG CAPSULE PO PRN (11:12)
[2021-12-31] MEDS ORDERED: guaiFENesin 200 MG/10 ML 10 ML UNIT-DOSE CUPS PO PRN (11:12)
[2021-12-31] MEDS ORDERED: MAGNESIUM HYDROX 2400MG/30ML ORAL SUSPENSION 30 ML CUP PO PRN (11:12)
[2021-12-31] MEDS ORDERED: IBUPROFEN 400 MG TABLET (FP) PO PRN (11:12)
[2021-12-31] MEDS ORDERED: ACETAMINOPHEN 325 MG TABLET (FP) PO PRN (11:12)
[2021-12-31] MEDS ORDERED: MAGNESIUM CITRATE 300 ML BOTTLE PO PRN (11:12)
[2021-12-31] MEDS ORDERED: MAG HYDROX/AL HYDROX/SIMETH 30 ML UNIT-DOSE CUP PO PRN (11:12)
[2021-12-31 11:51] VITALS: BMI 16.1
[2021-12-31 15:34] LABS: HEMATOCRIT 36.1 % (32.4-45.2); HEMOGLOBIN 11.3 GM/dL (10.7-15.3); MCH 22.3 pg (25.7-33.7); MCHC 31.2 g/dl (32.0-36.0); MEAN CELL VOLUME 71.4 fl (80-96); MEAN PLT VOLUME 7.7 fl (7.5-11.1); PLATELET COUNT 352 10^3/uL (134-434); RBC 5.05 M/mm3 (3.60-5.2); RDW 16.4 % (11.6-15.6); WHITE BLOOD COUNT 20.8 K/mm3 (4.0-10.0)
[2021-12-31 15:47] LABS: CALCIUM 9.6 mg/dL (8.5-10.1)
[2021-12-31 15:48] LABS: ALBUMIN 3.7 g/dl (3.4-5.0)
[2021-12-31 15:51] LABS: CREATININE 0.7 mg/dL (0.55-1.3)
[2021-12-31 15:52] LABS: BILIRUBIN,TOTAL 0.5 mg/dL (0.2-1); TOT PROT 7.2 g/dl (6.4-8.2)
[2021-12-31 15:57] LABS: SYPHILIS W/ RPR CONF NON-REACTIVE (NONREACTIVE)
[2022-01-01] MEDS: PRENATAL VITAMINS W/ FOLIC ACID TABLET (FP) PO SCH ×2 (06:05→12:22)
[2022-01-01] MEDS: MELATONIN 5 MG TABLETS PO SCH ×2 (06:06→21:56)
[2022-01-01] MEDS: hydrOXYzine PAMOATE 25 MG CAPSULE (FP) PO SCH ×7 (06:06→21:56)
[2022-01-01] MEDS: DIVALPROEX SODIUM 250 MG TABLET E.C. PO SCH ×3 (06:06→21:55)
[2022-01-01] MEDS: THIAMINE HCL 100 MG TABLET (FP) PO SCH ×2 (06:06→21:56)
[2022-01-01] MEDS ORDERED: PRAZOSIN HCL 1 MG CAPSULE PO SCH (10:00)
[2022-01-01] MEDS: ARIPiprazole 5 MG TABLET PO SCH (12:22)
[2022-01-01] MEDS: NICOTINE 14 MG/24 HOURS TOPICAL PATCH TD SCH (12:23)
[2022-01-01] MEDS: NICOTINE 10 MG CARTRIDGE (INHALER) IH PRN (12:26)
[2022-01-01] MEDS: PRAZOSIN HCL 1 MG CAPSULE PO SCH (21:57)
[2022-01-02] MEDS: hydrOXYzine PAMOATE 25 MG CAPSULE (FP) PO SCH ×5 (07:08→21:28)
[2022-01-02] MEDS: PRENATAL VITAMINS W/ FOLIC ACID TABLET (FP) PO SCH (10:21)
[2022-01-02] MEDS: ARIPiprazole 5 MG TABLET PO SCH (10:22)
[2022-01-02] MEDS: DIVALPROEX SODIUM 250 MG TABLET E.C. PO SCH ×2 (10:22→21:28)
[2022-01-02] MEDS: NICOTINE 14 MG/24 HOURS TOPICAL PATCH TD SCH (10:22)
[2022-01-02 15:20] LABS: EPI CELLS >36 /uL (0-25.1); HYALINE CASTS 8 /uL (0-3.1); PH,URINE 6.5 (5.0-8.0); URINE APPEARANCE CLOUDY; URINE BACTERIA 138 /uL (0-1359); URINE BILIRUBIN NEGATIVE (NEGATIVE); URINE COLOR YELLOW; URINE GLUCOSE (UA) NEGATIVE (NEGATIVE); URINE KETONE TRACE (NEGATIVE); URINE LEUK ESTERASE 1+ (NEGATIVE); URINE NITRITE NEGATIVE (NEGATIVE); URINE PROTEIN NEGATIVE (NEGATIVE); URINE RBC 14 /uL (0-23.9); URINE WBC 171 /uL (0-25.8)
[2022-01-02] MEDS: MELATONIN 5 MG TABLETS PO SCH (21:28)
[2022-01-02] MEDS: PRAZOSIN HCL 1 MG CAPSULE PO SCH (21:28)
[2022-01-02] MEDS: THIAMINE HCL 100 MG TABLET (FP) PO SCH (21:28)
[2022-01-03] MEDS: hydrOXYzine PAMOATE 25 MG CAPSULE (FP) PO SCH ×2 (07:03→11:52)
[2022-01-03] MEDS ORDERED: BUPRENORPHINE/NALOXONE 4 MG/1 MG FILM PACKET SL ONE ×3 (11:30→18:00)
[2022-01-03] MEDS: ARIPiprazole 5 MG TABLET PO SCH (11:50)
[2022-01-03] MEDS: PRENATAL VITAMINS W/ FOLIC ACID TABLET (FP) PO SCH (11:50)
[2022-01-03] MEDS: NICOTINE 14 MG/24 HOURS TOPICAL PATCH TD SCH (11:51)
[2022-01-03] MEDS: DIVALPROEX SODIUM 250 MG TABLET E.C. PO SCH ×2 (11:51→21:25)
[2022-01-03] MEDS: PRAZOSIN HCL 1 MG CAPSULE PO SCH (21:25)
[2022-01-03] MEDS: hydrOXYzine PAMOATE 25 MG CAPSULE (FP) PO PRN (21:25)
[2022-01-03] MEDS: MELATONIN 5 MG TABLETS PO SCH (21:25)
[2022-01-03] MEDS: THIAMINE HCL 100 MG TABLET (FP) PO SCH (21:25)
[2022-01-03] MEDS: NICOTINE 10 MG CARTRIDGE (INHALER) IH PRN (21:27)
[2022-01-04] MEDS ORDERED: BUPRENORPHINE/NALOXONE 8 MG/2 MG FILM PACKET SL SCH (10:00)
[2022-01-04] MEDS: PRENATAL VITAMINS W/ FOLIC ACID TABLET (FP) PO SCH (10:13)
[2022-01-04] MEDS: DIVALPROEX SODIUM 250 MG TABLET E.C. PO SCH ×2 (10:13→21:40)
[2022-01-04] MEDS: NICOTINE 14 MG/24 HOURS TOPICAL PATCH TD SCH (10:13)
[2022-01-04] MEDS: ARIPiprazole 5 MG TABLET PO SCH (10:13)
[2022-01-04] MEDS: BUPRENORPHINE/NALOXONE 8 MG/2 MG FILM PACKET SL SCH (17:15)
[2022-01-04] MEDS: PRAZOSIN HCL 1 MG CAPSULE PO SCH (21:40)
[2022-01-04] MEDS: THIAMINE HCL 100 MG TABLET (FP) PO SCH (21:40)
[2022-01-04] MEDS: hydrOXYzine PAMOATE 25 MG CAPSULE (FP) PO PRN (21:41)
[2022-01-04] MEDS: MELATONIN 5 MG TABLETS PO SCH (21:41)
[2022-01-05] MEDS: BUPRENORPHINE/NALOXONE 8 MG/2 MG FILM PACKET SL SCH ×2 (10:11→17:55)
[2022-01-05] MEDS: PRENATAL VITAMINS W/ FOLIC ACID TABLET (FP) PO SCH (10:11)
[2022-01-05] MEDS: NICOTINE 14 MG/24 HOURS TOPICAL PATCH TD SCH (10:11)
[2022-01-05] MEDS: NICOTINE 10 MG CARTRIDGE (INHALER) IH PRN (10:12)
[2022-01-05] MEDS: ARIPiprazole 5 MG TABLET PO SCH (11:51)
[2022-01-05] MEDS: DIVALPROEX SODIUM 250 MG TABLET E.C. PO SCH ×2 (11:51→21:23)
[2022-01-05] MEDS: hydrOXYzine PAMOATE 25 MG CAPSULE (FP) PO PRN ×2 (11:52→21:23)
[2022-01-05] MEDS: MELATONIN 5 MG TABLETS PO SCH (21:22)
[2022-01-05] MEDS: PRAZOSIN HCL 1 MG CAPSULE PO SCH (21:22)
[2022-01-05] MEDS: THIAMINE HCL 100 MG TABLET (FP) PO SCH (21:22)
[2022-01-06] MEDS: BUPRENORPHINE/NALOXONE 8 MG/2 MG FILM PACKET SL SCH ×2 (10:16→17:47)
[2022-01-06] MEDS: PRENATAL VITAMINS W/ FOLIC ACID TABLET (FP) PO SCH (11:21)
[2022-01-06] MEDS: DIVALPROEX SODIUM 250 MG TABLET E.C. PO SCH ×2 (11:21→21:26)
[2022-01-06] MEDS: ARIPiprazole 5 MG TABLET PO SCH (11:21)
[2022-01-06] MEDS: NICOTINE 14 MG/24 HOURS TOPICAL PATCH TD SCH (11:21)
[2022-01-06] MEDS: PRAZOSIN HCL 1 MG CAPSULE PO SCH (21:25)
[2022-01-06] MEDS: THIAMINE HCL 100 MG TABLET (FP) PO SCH (21:26)
[2022-01-06] MEDS: hydrOXYzine PAMOATE 25 MG CAPSULE (FP) PO PRN (21:26)
[2022-01-06] MEDS: MELATONIN 5 MG TABLETS PO SCH (22:16)
[2022-01-07 07:27] VITALS: BP 103/63; PULSE 69; TEMP 98.6
[2022-01-07] MEDS: DIVALPROEX SODIUM 250 MG TABLET E.C. PO SCH (09:20)
[2022-01-07] MEDS: PRENATAL VITAMINS W/ FOLIC ACID TABLET (FP) PO SCH (09:20)
[2022-01-07] MEDS: ARIPiprazole 5 MG TABLET PO SCH (09:20)
[2022-01-07] MEDS: NICOTINE 14 MG/24 HOURS TOPICAL PATCH TD SCH (09:21)
[2022-01-07] MEDS: BUPRENORPHINE/NALOXONE 8 MG/2 MG FILM PACKET SL SCH (09:21)
== END 2022-01-07 09:25 | disposition home or self-care (01) | DRG 772 ==
LOC: YASAS 10:18 → Y5N 16:07
PROVIDERS: ADMIT Allergy & Immunology; ATTEND Psychiatry & Neurology Pain Medicine
PROC: HZ42ZZZ Group Counseling for Substance Abuse Treatment, Cognitive-Behavioral (ICD-10-PCS; principal; 2021-12-31)
DX: F11.20 Opioid dependence, uncomplicated (principal); F10.20 Alcohol dependence, uncomplicated; F14.20 Cocaine dependence, uncomplicated; F13.20 Sedative, hypnotic or anxiolytic dependence, uncomplicated; F17.210 Nicotine dependence, cigarettes, uncomplicated; F31.9 Bipolar disorder, unspecified; F41.9 Anxiety disorder, unspecified; D64.9 Anemia, unspecified; D72.829 Elevated white blood cell count, unspecified; E86.0 Dehydration; N89.8 Other specified noninflammatory disorders of vagina; R63.4 Abnormal weight loss; Z68.1 Body mass index [BMI] 19.9 or less, adult
CPT/HCPCS: 36415; 80053; 80164; 81003; 81025; 82962; 85027; 86780; 86803; 87086; C9803-CS; U0003; U0005

== ENCOUNTER 2021-12-31 18:02 | Emergency (ER) | payer OTHER ==
[2021-12-31 18:26] VITALS: BMI 16.1
[2021-12-31] MEDS ORDERED: SODIUM CHLORIDE 0.9% 500 ML INFUS.BAG IV ONE (19:56)
[2021-12-31 21:23] LABS: BASO % 0.4 % (0-2.0); EOS % 0.7 % (0-4.5); HEMATOCRIT 35.2 % (32.4-45.2); HEMOGLOBIN 11.1 GM/dL (10.7-15.3); LYMPH % 19.7 % (8-40); MCH 21.9 pg (25.7-33.7); MCHC 31.4 g/dl (32.0-36.0); MEAN CELL VOLUME 69.9 fl (80-96); MEAN PLT VOLUME 7.4 fl (7.5-11.1); MONO % 6.9 % (3.8-10.2); NEUT % 72.3 % (42.8-82.8); PLATELET COUNT 347 10^3/uL (134-434); RBC 5.04 M/mm3 (3.60-5.2); RDW 16.4 % (11.6-15.6); WHITE BLOOD COUNT 16.5 K/mm3 (4.0-10.0)
[2021-12-31 21:49] LABS: CHLORIDE 107 mmol/L (98-107); SODIUM 141 mmol/L (136-145)
[2021-12-31 21:51] LABS: CALCIUM 8.9 mg/dL (8.5-10.1)
[2021-12-31 21:52] LABS: ALBUMIN 3.4 g/dl (3.4-5.0); ANION GAP 7 MMOL/L (8-16); BLOOD UREA NITROGEN 15.4 mg/dL (7-18); CO2 27 mmol/L (21-32); GLUCOSE,RANDOM 107 mg/dL (74-106)
[2021-12-31 21:55] LABS: CREATININE 0.6 mg/dL (0.55-1.3); SGOT/AST 13 U/L (15-37); SGPT/ALT 27 U/L (13-61)
[2021-12-31 21:56] LABS: BILIRUBIN,TOTAL 0.3 mg/dL (0.2-1)
[2021-12-31 21:57] LABS: TOT PROT 6.6 g/dl (6.4-8.2)
[2021-12-31 21:58] LABS: ALK PHOS 89 U/L (45-117)
[2021-12-31 22:07] LABS: ANISOCYTOSIS 2+; MACROCYTOSIS 1+
[2021-12-31 22:42] LABS: PLATELET ESTIMATE ADEQUATE
[2021-12-31] MEDS ORDERED: KETOROLAC TROMETHAMINE 30 MG/1 ML VIAL IVPUSH ONE (23:01)
[2021-12-31] MEDS ORDERED: KETOROLAC TROMETHAMINE 30 MG/1 ML VIAL ONE (23:13)
[2022-01-01 01:03] LABS: BASO % 0.5 % (0-2.0); EOS % 0.8 % (0-4.5); HEMATOCRIT 34.7 % (32.4-45.2); HEMOGLOBIN 10.6 GM/dL (10.7-15.3); LYMPH % 21.6 % (8-40); MCH 21.7 pg (25.7-33.7); MCHC 30.6 g/dl (32.0-36.0); MEAN CELL VOLUME 70.9 fl (80-96); MEAN PLT VOLUME 7.7 fl (7.5-11.1); MONO % 5.1 % (3.8-10.2); PLATELET COUNT 348 10^3/uL (134-434); RDW 16.4 % (11.6-15.6); WHITE BLOOD COUNT 14.8 K/mm3 (4.0-10.0)
[2022-01-01 03:25] VITALS: BP 115/67; PULSE 76; TEMP 98.2
== END 2022-01-01 05:25 | disposition home or self-care (01) ==
LOC: JER 18:02
PROC: 3E0333Z Introduction of Anti-inflammatory into Peripheral Vein, Percutaneous Approach (ICD-10-PCS; principal; 2021-12-31)
DX: D72.829 Elevated white blood cell count, unspecified (principal); E86.0 Dehydration
CPT/HCPCS: 36415; 71046-TC-FY; 80053; 83605; 84702; 85025; 87040; 99284-25

== ENCOUNTER 2022-07-25 11:13 | Inpatient (IN) | payer OTHER ==
[2022-07-25 12:09] VITALS: BMI 18.5
[2022-07-25] MEDS ORDERED: NALOXONE HCL (KLOXXADO) 8 MG SPRAY NS PRN (12:24)
[2022-07-25] MEDS ORDERED: METHOCARBAMOL 500 MG TABLET PO PRN (12:24)
[2022-07-25] MEDS ORDERED: BENZOCAINE/MENTHOL (CHLORASEPTIC ) LOZENGE MM PRN (12:24)
[2022-07-25] MEDS ORDERED: MAGNESIUM HYDROX 2400MG/30ML ORAL SUSPENSION 30 ML CUP PO PRN (12:24)
[2022-07-25] MEDS ORDERED: diazePAM 5 MG TABLET PO PRN ×2 (12:24)
[2022-07-25] MEDS ORDERED: BISMUTH SUBSALICYLATE 524 MG/30 ML PO PRN (12:24)
[2022-07-25] MEDS ORDERED: NICOTINE 10 MG CARTRIDGE (INHALER) IH PRN (12:24)
[2022-07-25] MEDS ORDERED: ONDANSETRON *ODT* 4 MG TABLET SL PRN (12:24)
[2022-07-25] MEDS ORDERED: IBUPROFEN 600 MG TABLET (FP) PO PRN (12:24)
[2022-07-25] MEDS ORDERED: POLYETHYLENE GLYCOL (HEALTHYLAX) 3350 17 GM PACKET PO PRN (12:24)
[2022-07-25] MEDS ORDERED: BUPRENORPHINE HCL 150 MCG, BUPRENORPHINE HCL 75 MCG BC PRN (12:24)
[2022-07-25] MEDS ORDERED: LOPERAMIDE HCL 2 MG CAPSULE PO PRN (12:24)
[2022-07-25] MEDS ORDERED: DICYCLOMINE HCL 10 MG CAPSULE PO PRN (12:24)
[2022-07-25] MEDS ORDERED: MAG HYDROX/AL HYDROX/SIMETH 30 ML UNIT-DOSE CUP PO PRN (12:24)
[2022-07-25] MEDS ORDERED: IBUPROFEN 400 MG TABLET (FP) PO PRN (12:24)
[2022-07-25] MEDS ORDERED: ACETAMINOPHEN 325 MG TABLET (FP) PO PRN ×2 (12:24)
[2022-07-25] MEDS ORDERED: hydrOXYzine PAMOATE 25 MG CAPSULE (FP) PO PRN (12:24)
[2022-07-25] MEDS ORDERED: BUPRENORPHINE HCL 150 MCG, BUPRENORPHINE HCL 75 MCG BC ONE (12:45)
[2022-07-25] MEDS ORDERED: cloNIDine HCL 0.1 MG TABLET PO ONE (13:00)
[2022-07-25] MEDS ORDERED: BUPRENORPHINE HCL 75 MCG FILM BC ONE (13:25)
[2022-07-25] MEDS ORDERED: BUPRENORPHINE HCL 150 MCG FILM BC ONE (13:25)
[2022-07-25] MEDS ORDERED: cloNIDine HCL 0.1 MG TABLET ONE (13:26)
[2022-07-25] MEDS: PRENATAL VITAMINS W/ FOLIC ACID TABLET (FP) PO SCH (13:45)
[2022-07-25] MEDS: NICOTINE 21 MG/24 HOURS TOPICAL PATCH TD SCH (13:45)
[2022-07-25] MEDS ORDERED: cloNIDine HCL 0.1 MG TABLET PO PRN (16:24)
[2022-07-25] MEDS: diazePAM 5 MG TABLET PO SCH ×2 (17:07→22:42)
[2022-07-25 18:00] LABS: HEMATOCRIT 33.7 % (32.4-45.2); HEMOGLOBIN 10.3 GM/dL (10.7-15.3); MCH 21.9 pg (25.7-33.7); MCHC 30.6 g/dl (32.0-36.0); MEAN CELL VOLUME 71.5 fl (80-96); MEAN PLT VOLUME 8.7 fl (7.5-11.1); PLATELET COUNT 295 10^3/uL (134-434); RBC 4.71 M/mm3 (3.60-5.2); WHITE BLOOD COUNT 9.9 K/mm3 (4.0-10.0)
[2022-07-25 18:08] LABS: CALCIUM 8.9 mg/dL (8.5-10.1)
[2022-07-25 18:09] LABS: ALBUMIN 3.6 g/dl (3.4-5.0)
[2022-07-25 18:12] LABS: CREATININE 0.9 mg/dL (0.55-1.3)
[2022-07-25 18:13] LABS: BILIRUBIN,TOTAL 0.4 mg/dL (0.2-1)
[2022-07-25 18:14] LABS: TOT PROT 6.7 g/dl (6.4-8.2)
[2022-07-25] MEDS: ARIPiprazole 5 MG TABLET PO SCH (22:41)
[2022-07-25] MEDS: THIAMINE HCL 100 MG TABLET (FP) PO SCH (22:41)
[2022-07-25] MEDS: DIVALPROEX SODIUM 250 MG TABLET E.C. PO SCH (22:42)
[2022-07-25] MEDS: PRAZOSIN HCL 1 MG CAPSULE PO SCH (22:42)
[2022-07-25] MEDS: MELATONIN 5 MG TABLETS PO SCH (22:44)
[2022-07-26] MEDS ORDERED: BUPRENORPHINE HCL 150 MCG, BUPRENORPHINE HCL 75 MCG BC PRN
[2022-07-26] MEDS: diazePAM 5 MG TABLET PO SCH ×4 (05:39→22:43)
[2022-07-26] MEDS: BUPRENORPHINE HCL 150 MCG, BUPRENORPHINE HCL 75 MCG BC SCH ×2 (05:40→17:20)
[2022-07-26] MEDS: PRENATAL VITAMINS W/ FOLIC ACID TABLET (FP) PO SCH (10:54)
[2022-07-26] MEDS: DIVALPROEX SODIUM 250 MG TABLET E.C. PO SCH ×2 (10:54→22:43)
[2022-07-26] MEDS: NICOTINE 21 MG/24 HOURS TOPICAL PATCH TD SCH (10:56)
[2022-07-26] MEDS: THIAMINE HCL 100 MG TABLET (FP) PO SCH (22:43)
[2022-07-26] MEDS: MELATONIN 5 MG TABLETS PO SCH (22:43)
[2022-07-26] MEDS: ARIPiprazole 5 MG TABLET PO SCH (22:43)
[2022-07-26] MEDS: PRAZOSIN HCL 1 MG CAPSULE PO SCH ×2 (22:43→22:57)
[2022-07-27] MEDS ORDERED: BUPRENORPHINE HCL 450 MCG FILM BC SCH (06:00)
[2022-07-27] MEDS ORDERED: diazePAM 5 MG TABLET PO SCH (06:00)
[2022-07-27 09:51] VITALS: BP 134/88; PULSE 76; RESP 18; TEMP 98.2
[2022-07-27] MEDS: NICOTINE 21 MG/24 HOURS TOPICAL PATCH TD SCH (10:24)
[2022-07-27] MEDS: PRENATAL VITAMINS W/ FOLIC ACID TABLET (FP) PO SCH (10:24)
[2022-07-27] MEDS: DIVALPROEX SODIUM 250 MG TABLET E.C. PO SCH (10:27)
[2022-07-28] MEDS ORDERED: BUPRENORPHINE/NALOXONE 4 MG/1 MG FILM PACKET SL SCH (06:00)
[2022-07-28] MEDS ORDERED: diazePAM 5 MG TABLET PO SCH (06:00)
[2022-07-29] MEDS ORDERED: BUPRENORPHINE/NALOXONE 8 MG/2 MG FILM PACKET SL ONE (06:00)
[2022-07-29] MEDS ORDERED: diazePAM 5 MG TABLET PO ONE (06:00)
== END 2022-07-27 11:00 | disposition left against medical advice (07) | DRG 770 ==
LOC: YASAS 11:13 → Y6N 12:33
PROVIDERS: ADMIT Allergy & Immunology; ATTEND Surgery
PROC: HZ2ZZZZ Detoxification Services for Substance Abuse Treatment (ICD-10-PCS; principal; 2022-07-25)
DX: F11.23 Opioid dependence with withdrawal (principal); F10.230 Alcohol dependence with withdrawal, uncomplicated; F13.230 Sedative, hypnotic or anxiolytic dependence with withdrawal, uncomplicated; F14.20 Cocaine dependence, uncomplicated; F17.210 Nicotine dependence, cigarettes, uncomplicated; F43.10 Post-traumatic stress disorder, unspecified; F25.0 Schizoaffective disorder, bipolar type; F90.9 Attention-deficit hyperactivity disorder, unspecified type; F31.70 Bipolar disorder, currently in remission, most recent episode unspecified; F60.3 Borderline personality disorder; F19.282 Other psychoactive substance dependence with psychoactive substance-induced sleep disorder; D64.9 Anemia, unspecified; J44.9 Chronic obstructive pulmonary disease, unspecified; R63.4 Abnormal weight loss; Z68.1 Body mass index [BMI] 19.9 or less, adult; Z86.11 Personal history of tuberculosis; Z62.810 Personal history of physical and sexual abuse in childhood; Z56.0 Unemployment, unspecified; Z59.00 Homelessness unspecified
CPT/HCPCS: 36415; 80053; 81025; 85027; 86780; C9803-CS; U0003; U0005